=== PATIENT | female | born 1945 | race American Indian/Alaskan Native ===

== ENCOUNTER 2016-06-29 19:02 | Emergency (ER) | payer MEDICARE, OTHER, BC ==
[2016-06-29] MEDS ORDERED: Sodium Chloride 0.9% 1,000 ML IV ONE (19:13)
[2016-06-29] MEDS ORDERED: Sodium Chloride 0.9% 2.5 ML Syringe FLUSH PRN ×2 (19:13)
[2016-06-29] MEDS ORDERED: Sodium Chloride 0.9% 10 ML Syringe FLUSH PRN ×2 (19:13)
--- NOTE | 2016-06-29 19:30 | EDM.PDOC ---
ED HPI SEIZURE COMPLAINT - General Chief Complaint: Syncope Stated Complaint: PT HAS HIGH BLOOD PRESSURE Time Seen by Provider: 06/29/16 19:09 Source of Information: Reports: Patient, Family History Limitations: Reports: No limitations - History of Present Illness INITIAL COMMENTS - FREE TEXT/NARRATIVE: HISTORY AND PHYSICAL: History of present illness: [69-year-old female with a history of chronic renal insufficiency dementia type 2 diabetes prior CVA with unilateral persistent strength deficit of lower extremity unchanged for. Per patient, are OK with multiple stents placed now brought in by daughter for evaluation of episode of syncope while on her way to the bathroom to move her bowels. She had to use the bathroom and was holding it when she stood up to go to the bathroom with assistance from her daughter. Patient became lightheaded and then became unresponsive briefly. She did not fall and injured because of her daughter's presence. When patient awoke she was able to communicate verbally. This seizure activity, postictal state, or incontinence. No chest pain or shortness of air. Patient with no complaints except mild generalized weakness since her baseline chronically. Patient is unable walk without assistance and her walker and this is her baseline since her prior stroke. This and has a left lower facial droop also baseline since the prior stroke no new neurologic complaints and patient is at her baseline mental status per daughter. Daughter also mentions that the patient had a fall on the of this month where she hit her head but CT was ever done to evaluate this. Review of systems: As per history of present illness and below otherwise all systems reviewed and negative. Past medical history: As per history of present illness and as reviewed below otherwise noncontributory. Surgical history: As per history of present illness and as reviewed below otherwise noncontributory. Social history: No reported history of drug or alcohol abuse. Family history: As per history of present illness and as reviewed below otherwise noncontributory. Physical exam: Chronically weak appearing however alert in no acute distress with no complaints HEENT: Atraumatic, normocephalic, pupils reactive, negative for conjunctival pallor or scleral icterus, mucous membranes dry, throat clear, neck supple, nontender, trachea midline. Lungs: Clear to auscultation, breath sounds equal bilaterally, chest nontender. Heart: S1S2, regular, negative for clicks, rubs, or JVD. Abdomen: Soft, nondistended, nontender. Negative for masses or hepatosplenomegaly. Negative for costovertebral tenderness. Pelvis: Stable nontender. Genitourinary: Deferred. Rectal: Deferred. Extremities: Atraumatic, negative for cords or calf pain. Neurovascular unremarkable. Neuro: Awake, alert, oriented and mental status baseline per daughter. Cranial nerves II through XII unremarkable except left lower facial droop consistent with a central cranial nerve 7 palsy. Cerebellum unremarkable. Motor and sensory unremarkable throughout and consistent with generalized weakness baseline per patient and daughter. Exam otherwise nonfocal Diagnostics: [] Therapeutics: [] Impression: [] Plan: [] Definitive disposition and diagnosis as appropriate pending reevaluation and review of above. - Related Data Allergies/ADRs: Allergies Allergy/AdvReac Type Severity Reaction Status Date / Time Penicillins Allergy Swelling Verified 06/29/16 19:11 Home Meds: Home Meds Fenofibrate Nanocrystallized [Fenofibrate] 145 mg PO DAILY 05/26/14 [History] Levothyroxine 112 mcg PO DAILY 05/26/14 [History] Metoprolol Tartrate 1 tab PO DAILY 05/26/14 [History] Multivitamins/Iron/Folic Acid [Cerovite Advanced Formula] 1 tab PO DAILY [History] Vitamin E 400 units PO DAILY 05/26/14 [History] Warfarin [Coumadin] 2 mg PO DAILY 05/26/14 [History] Aspirin 162 mg PO DAILY #30 tab.chew 05/05/16 [Rx] Bumetanide [Bumex] 3 mg PO DAILY #90 tablet 05/05/16 [Rx] Insulin Aspart [NovoLOG] 15 unit SUBCUT TIDAC 30 Days 05/05/16 [Rx] Insulin Detemir [Levemir] 120 units SUBCUT ASDIRECTED 7 Days 05/05/16 [Rx] Past Medical History HEENT History: Reports: Cataract Cardiovascular History: Reports: Prior cardiac arrest, Stents Other Cardiovascular History: 06/08/16 cardiac arrest Respiratory History: Reports: None Genitourinary History: Reports: None, UTI, recurrent [employer]/DES[employer]ER History: Reports: , Other (see below) Other OB/BYN History: C section, hysterectomy Musculoskeletal History: Reports: None Neurological History: Reports: None Psychiatric History: Reports: None Endocrine/Metabolic History: Reports: Diabetes, type II, Hypothyroidism Hematologic History: Reports: Anticoagulation therapy Immunologic History: Reports: None Oncologic (Cancer) History: Reports: None Dermatologic History: Reports: None - Infectious Disease History Infectious Disease History: Reports: Chicken pox, Measles, Mumps - Past Surgical History Head Surgeries/Procedures: Reports: None HEENT Surgical History: Reports: Cataract surgery GI Surgical History: Reports: Cholecystectomy Female Surgical History: Reports: section, Hysterectomy Musculoskeletal Surgical History: Reports: Other (see below) Other Musculoskeletal Surgeries/Procedures:: left ankle Social & Family History - Family History Family Medical History: Noncontributory HEENT: Reports: Cataract Cardiac: Reports: Hypertension Respiratory: Reports: None GI: Reports: Irritable bowel syndrome : Reports: None OBGYN: Reports: None Musculoskeletal: Reports: Arthritis Neurological: Reports: None Psychiatric: Reports: None Endocrine/Metabolic: Reports: Diabetes, type I Hematologic: Reports: None Oncologic: Reports: Other (see below) Other Oncologic Family History: stomach cancer - Tobacco Use Smoking Status *Q: Never Smoker Second Hand Smoke Exposure: No - Caffeine Use Caffeine Use: Reports: Coffee, Tea - Alcohol Use Days Per Week of Alcohol Use: 0 - Recreational Drug Use Recreational Drug Use: No ED ROS GENERAL - Review of Systems Review Of Systems: See Below (Per history of present illness) - Physical Exam Exam: See Below (Per history of present illness) Course - Vital Signs Text/Narrative:: Signs and symptoms consistent with vasovagal episode in an elderly female with chronic weakness and ambulatory dysfunction requiring assistance and walker at all times. She currently at her baseline mental status as well as neurologic status with generalized weakness and no change in chronic deficit post CVA full workup pending to rule out contributory etiology. Patient with dry mucous membranes area fluid bolus initiated. EKG unremarkable. Patient with no symptomatic prodrome and nothing to suggest ACS or acute CVA. Vital signs stable. Daughter states that patient fell on the of this month she hasn't quite felt like herself since hitting her head the time of that fall. Will CT head to rule out intracranial abnormality EKG interpreted by me normal sinus rhythm at 69 left anterior hemiblock no standing nonspecific T-wave findings. Chest x-ray interpreted by me chronic changes no acute disease no change prior study Full workup unremarkable except for hemoglobin of 10 which is essentially unchanged for hemoglobin of 10.4 on May 28 as well as BUN/creatinine of 46 and 2.1 essentially unchanged from values of 52 and 2.1 January 25 also. Remainder workup benign. Patient continues to feel well on reevaluation her hydration. No further workup or treatment indicated. Outpatient followup appropriate and patient and family agree with this. There were to return immediately for new severe or worsening symptoms. Strict return precautions given. Last Recorded V/S: Last Vital Signs Temp 36.6 C 06/29/16 19:06 Pulse 69 06/29/16 19:06 Resp 16 06/29/16 19:06 BP 145/70 H 06/29/16 19:06 Pulse Ox 100 06/29/16 19:06 - Orders/Labs/Meds Orders: Active Orders 24 hr Category Date Time Status EKG Documentation Completion [RC] STAT Care 06/29/16 19:13 Active Peripheral IV Care [RC] . DIRECTED Care 06/29/16 19:13 Active Chest 1V Frontal [CR] Stat Exams 06/29/16 19:13 Taken Head wo Cont [CT] Stat Exams 06/29/16 19:55 Taken UA W/MICROSCOPIC [URIN] Stat Lab 06/29/16 19:13 Ordered Sodium Chloride 0.9% [Saline Flush] Med 06/29/16 19:13 Active 10 ml FLUSH ASDIRECTED PRN Sodium Chloride 0.9% [Saline Flush] Med 06/29/16 19:13 Active 10 ml FLUSH ASDIRECTED PRN Sodium Chloride 0.9% [Saline Flush] Med 06/29/16 19:13 Active 2.5 ml FLUSH ASDIRECTED PRN Sodium Chloride 0.9% [Saline Flush] Med 06/29/16 19:13 Active 2.5 ml FLUSH ASDIRECTED PRN Peripheral IV Insertion Adult [OM.PC] Stat Oth 06/29/16 19:13 Ordered Medication Orders Sodium Chloride (Saline Flush) 10 ml FLUSH ASDIRECTED PRN PRN Reason: Keep Vein Open Sodium Chloride (Saline Flush) 2.5 ml FLUSH ASDIRECTED PRN PRN Reason: Keep Vein Open Sodium Chloride (Saline Flush) 10 ml FLUSH ASDIRECTED PRN PRN Reason: Keep Vein Open Sodium Chloride (Saline Flush) 2.5 ml FLUSH ASDIRECTED PRN PRN Reason: Keep Vein Open Labs: Laboratory Tests 06/29/16 06/29/16 06/29/16 Range/Units 19:28 19:28 19:28 WBC 5.49 (4.0-11.0) K/uL RBC 3.50 L (4.30-5.90) M/uL Hgb 10.0 L (12.0-16.0) g/dL Hct 30.5 L (36.0-46.0) % MCV 87.1 (80.0-98.0) fL MCH 28.6 (27.0-32.0) pg MCHC 32.8 (31.0-37.0) g/dL RDW Std Deviation 42.5 (28.0-62.0) fl RDW Coeff of Irvin 14 (11.0-15.0) % Plt Count 286 (150-400) K/uL MPV 8.90 (7.40-12.00) fL Neut % (Auto) 64.8 (48.0-80.0) % Lymph % (Auto) 21.3 (16.0-40.0) % Vigo % (Auto) 12.2 (0.0-15.0) % Eos % (Auto) 1.5 (0.0-7.0) % Baso % (Auto) 0.2 (0.0-1.5) % Neut # 3.6 (1.4-5.7) K/uL Lymph # 1.2 (0.6-2.4) K/uL Vigo # 0.7 (0.0-0.8) K/uL Eos # 0.1 (0.0-0.7) K/uL Baso # 0.0 (0.0-0.1) K/uL Nucleated RBC % 0.0 /100WBC Nucleated RBCs # 0 K/uL Sodium 136 (136-146) mmol/L Potassium 3.8 (3.5-5.1) mmol/L Chloride 98 (98-110) mmol/L Carbon Dioxide 24 (21-31) mmol/L BUN 46 H (6.0-23.0) mg/dL Creatinine 2.1 H (0.6-1.5) mg/dL Est Cr Clr Drug Dosing 20.03 mL/min Estimated GFR (MDRD) 23.2 ml/min Glucose 153 H (60-110) mg/dL Calcium 9.2 (8.8-10.8) mg/dL Total Bilirubin 0.4 (0.1-1.5) mg/dL AST 21 (5-40) IU/L ALT 25 (8-54) IU/L Alkaline Phosphatase 145 (40-150) Troponin I < 0.10 (0.0-0.29) NG/ML Total Protein 8.3 H (6.0-8.0) g/dL Albumin 3.5 (3.4-4.8) g/dL Globulin 4.8 H (2.0-3.5) g/dL Albumin/Globulin Ratio 0.7 L (1.3-2.8) TSH 3rd Generation 2.10 (0.47-5.0) uIU/mL Meds: Medications Generic Name Dose Route Start Last Admin Trade Name Freq PRN Reason Stop Dose Admin Sodium Chloride 10 ml 06/29/16 19:13 Saline Flush FLUSH ASDIRECTED PRN Keep Vein Open Sodium Chloride 2.5 ml 06/29/16 19:13 Saline Flush FLUSH ASDIRECTED PRN Keep Vein Open Sodium Chloride 10 ml 06/29/16 19:13 Saline Flush FLUSH ASDIRECTED PRN Keep Vein Open Sodium Chloride 2.5 ml 06/29/16 19:13 Saline Flush FLUSH ASDIRECTED PRN Keep Vein Open Discontinued Medications Generic Name Dose Route Start Last Admin Trade Name Freq PRN Reason Stop Dose Admin Sodium Chloride 1,000 mls @ 999 mls/hr 06/29/16 19:13 06/29/16 19:50 Normal Saline IV 06/29/16 20:13 999 mls/hr .Bolus ONE Administration Departure - Departure Time of Disposition: 21:39 Disposition: Home, Self-Care 01 Condition: good Clinical Impression: Vasovagal syncope, Generalized weakness, Chronic renal insufficiency, Chronic anemia Instructions: Syncope, [id number] Referrals: PCP,None [Primary Care Provider] - Forms: ED Department Discharge Additional Instructions: Your history and findings today are consistent with an episode of vasovagal syncope. It appears that you also had a mild clinical dehydration that contributed to your episode of fainting. Be sure to stay well-hydrated. There is no significant change today in your chronic anemia were your chronic renal insufficiency. Continue with your medication regimen as prescribed and follow up with your DrDanny tomorrow. Return immediately for new severe or worsening symptoms. - My Orders Last 24 Hours: My Active Orders 06/29/16 19:13 EKG Documentation Completion [RC] STAT Peripheral IV Care [RC] . DIRECTED Chest 1V Frontal [CR] Stat UA W/MICROSCOPIC [URIN] Stat Sodium Chloride 0.9% [Saline Flush] 10 ml FLUSH ASDIRECTED PRN Sodium Chloride 0.9% [Saline Flush] 10 ml FLUSH ASDIRECTED PRN Sodium Chloride 0.9% [Saline Flush] 2.5 ml FLUSH ASDIRECTED PRN Sodium Chloride 0.9% [Saline Flush] 2.5 ml FLUSH ASDIRECTED PRN Peripheral IV Insertion Adult [OM.PC] Stat 06/29/16 19:55 Head wo Cont [CT] Stat - Assessment/Plan Last 24 Hours: My Active Orders 06/29/16 19:13 EKG Documentation Completion [RC] STAT Peripheral IV Care [RC] . DIRECTED Chest 1V Frontal [CR] Stat UA W/MICROSCOPIC [URIN] Stat Sodium Chloride 0.9% [Saline Flush] 10 ml FLUSH ASDIRECTED PRN Sodium Chloride 0.9% [Saline Flush] 10 ml FLUSH ASDIRECTED PRN Sodium Chloride 0.9% [Saline Flush] 2.5 ml FLUSH ASDIRECTED PRN Sodium Chloride 0.9% [Saline Flush] 2.5 ml FLUSH ASDIRECTED PRN Peripheral IV Insertion Adult [OM.PC] Stat 06/29/16 19:55 Head wo Cont [CT] Stat
[2016-06-29 22:16] VITALS: BP 140/63
--- NOTE | 2016-06-30 15:52 | CR ---
EXAM DATE: 06/29/16 PATIENT'S AGE: 71 Patient: YADIRA TORRES Facility: [place], [place] Site . Site : 1945 Study: XRay Chest [id number]/20/2017 8:45:40 PM Ordering Physician: Ward Wood Final Report: INDICATION: 3 syncopal episodes, hypertension. TECHNIQUE: Chest 1 view. COMPARISON: 05/28/2016 FINDINGS: Cardiovascular and mediastinum: Heart size and vasculature are normal in caliber and appearance. Mediastinum is within normal limits. Lungs and pleural space: Lungs are clear. No sign of infiltrate or mass. No sign of pleural effusion. No pneumothorax. Bones and soft tissues: Scoliosis. IMPRESSION: Unremarkable chest. Stable appearance of the chest compared to 05/28/2016. Dictated by Misha Joe MD @ 06/29/2016 8:54:09 PM Dictated by: Misha Joe MD @ 06/29/2016 20:54:16 (Electronic Signature) Report Signed by Proxy and Original Signed Document filed in the Medical Record. [facility]
--- NOTE | 2016-06-30 15:53 | CT ---
EXAM DATE: 06/29/16 PATIENT'S AGE: 71 Patient: YADIRA TORRES Facility: [place], [place] Site . Site : 1945 Study: CT Head [id number]/20/2017 8:59:36 PM Ordering Physician: Ward Wood Final Report: INDICATION: Syncope x3. Sinus pressure. Confusion, nausea, dizziness TECHNIQUE: CT head without contrast. COMPARISON: 02/03/2013 FINDINGS: CSF spaces: Within normal limits for age. Brain parenchyma: The bowles-white differentiation is normal. No sign of mass, hemorrhage, or midline shift. Skull base and calvarium: The visualized paranasal sinuses and mastoid air cells demonstrate no acute or significant findings. The visualized orbits are grossly unremarkable. No skull fractures. IMPRESSION: No intracranial abnormalities. Normal aeration of the paranasal sinuses and mastoid air cells. Dictated by Misha Joe MD @ 06/29/2016 9:11:04 PM Dictated by: Misha Joe MD @ 06/29/2016 21:11:10 (Electronic Signature) Report Signed by Proxy and Original Signed Document filed in the Medical Record. [facility]
== END 2016-06-29 22:16 | disposition home or self-care (01) ==
LOC: MW.ED 19:02
DX: E11.22 Type 2 diabetes mellitus with diabetic chronic kidney disease (principal); N18.9 Chronic kidney disease, unspecified; D63.1 Anemia in chronic kidney disease; E03.9 Hypothyroidism, unspecified; R53.1 Weakness; Z88.0 Allergy status to penicillin; Z79.899 Other long term (current) drug therapy; Z79.01 Long term (current) use of anticoagulants; Z79.82 Long term (current) use of aspirin; Z79.4 Long term (current) use of insulin; Z90.710 Acquired absence of both cervix and uterus; Z98.890 Other specified postprocedural states
CPT/HCPCS: 36415; 70450; 71010; 80053; 81001; 84443; 84484; 85025; 93005; 96360; 96361; 99285; J7040

== ENCOUNTER 2016-07-02 19:45 | Emergency (ER) | payer MEDICARE, BC ==
[2016-07-02] MEDS ORDERED: Sodium Chloride 0.9% 1,000 ML IV ONE (20:19)
[2016-07-02] MEDS ORDERED: Sodium Chloride 0.9% 10 ML Syringe FLUSH PRN ×2 (20:19)
[2016-07-02] MEDS ORDERED: Sodium Chloride 0.9% 2.5 ML Syringe FLUSH PRN ×2 (20:19)
[2016-07-02] MEDS ORDERED: Sodium Chloride 0.9% 500 ML IV ONE (20:20)
--- NOTE | 2016-07-02 23:09 | EDM.PDOC ---
ED HPI SEIZURE COMPLAINT - General Chief Complaint: Syncope Stated Complaint: syncopal episode Time Seen by Provider: 07/02/16 20:17 Source of Information: Reports: Patient, Family History Limitations: Reports: No limitations - History of Present Illness INITIAL COMMENTS - FREE TEXT/NARRATIVE: HISTORY AND PHYSICAL: History of present illness: [71-year-old female with a history of vasovagal syncope and orthostasis, seen by me days ago for an evaluation after an episode of syncope while on her way to the bathroom to urinate and move her bowels. Patient now presents to the emergency department again with an identical story of syncope. Patient stood up with her walker and attempted to walk to the bathroom to urinate and move her bowels and she was lightheaded and slumped to the ground she denies injury it no chest pain or shortness of breath. No focal weakness or complaint. She had no prodromal symptoms of chest pain shortness of air fevers chills sweats or shaking chills. She has normal bowel bladder habits and felt well up until the moment of this event and feels baseline now Review of systems: As per history of present illness and below otherwise all systems reviewed and negative. Past medical history: As per history of present illness and as reviewed below otherwise noncontributory. Surgical history: As per history of present illness and as reviewed below otherwise noncontributory. Social history: No reported history of drug or alcohol abuse. Family history: As per history of present illness and as reviewed below otherwise noncontributory. Physical exam: Elderly female no acute distress alert oriented and communicative. Nonfocal neurologically. HEENT: Atraumatic, normocephalic, pupils reactive, negative for conjunctival pallor or scleral icterus, mucous membranes moist, throat clear, neck supple, nontender, trachea midline. Painless range of motion of C-spine Lungs: Clear to auscultation, breath sounds equal bilaterally, chest nontender. Heart: S1S2, regular, negative for clicks, rubs, or JVD. Abdomen: Soft, nondistended, nontender. Negative for masses or hepatosplenomegaly. Negative for costovertebral tenderness. Pelvis: Stable nontender. Genitourinary: Deferred. Rectal: Deferred. Extremities: Atraumatic, negative for cords or calf pain. Neurovascular unremarkable. Neuro: Awake, alert, oriented. Cranial nerves II through XII unremarkable. Cerebellum unremarkable. Motor and sensory unremarkable throughout. Exam nonfocal. Diagnostics: [] Therapeutics: [] Impression: [] Plan: [] Definitive disposition and diagnosis as appropriate pending reevaluation and review of above. - Related Data Allergies/ADRs: Allergies Allergy/AdvReac Type Severity Reaction Status Date / Time Penicillins Allergy Swelling Verified 06/29/16 19:11 Home Meds: Home Meds Fenofibrate Nanocrystallized [Fenofibrate] 145 mg PO DAILY 05/26/14 [History] Levothyroxine 112 mcg PO DAILY 05/26/14 [History] Metoprolol Tartrate 1 tab PO DAILY 05/26/14 [History] Multivitamins/Iron/Folic Acid [Cerovite Advanced Formula] 1 tab PO DAILY [History] Vitamin E 400 units PO DAILY 05/26/14 [History] Warfarin [Coumadin] 2 mg PO DAILY 05/26/14 [History] Aspirin 162 mg PO DAILY #30 tab.chew 05/05/16 [Rx] Bumetanide [Bumex] 3 mg PO DAILY #90 tablet 05/05/16 [Rx] Insulin Aspart [NovoLOG] 15 unit SUBCUT TIDAC 30 Days 05/05/16 [Rx] Insulin Detemir [Levemir] 120 units SUBCUT ASDIRECTED 7 Days 05/05/16 [Rx] Past Medical History HEENT History: Reports: Cataract Cardiovascular History: Reports: Hypertension Other Cardiovascular History: 06/08/16 cardiac arrest Respiratory History: Reports: None Genitourinary History: Reports: None, UTI, recurrent BOARDMARKER History: Reports: , Other (see below) Other OB/BYN History: C section, hysterectomy Musculoskeletal History: Reports: None Neurological History: Reports: None Psychiatric History: Reports: None Endocrine/Metabolic History: Reports: Diabetes, type II, Hypothyroidism Hematologic History: Reports: Anticoagulation therapy Immunologic History: Reports: None Oncologic (Cancer) History: Reports: None Dermatologic History: Reports: None - Infectious Disease History Infectious Disease History: Reports: Chicken pox, Measles, Mumps - Past Surgical History Head Surgeries/Procedures: Reports: None HEENT Surgical History: Reports: Cataract surgery Other Cardiovascular Surgeries/Procedures: Dr Thorpe put in 2 stents 2 weeks ago. had stents in leg june 25 GI Surgical History: Reports: Cholecystectomy Female Surgical History: Reports: section, Hysterectomy Musculoskeletal Surgical History: Reports: Other (see below) Other Musculoskeletal Surgeries/Procedures:: left ankle Social & Family History - Family History Family Medical History: Noncontributory HEENT: Reports: Cataract Cardiac: Reports: Hypertension Respiratory: Reports: None GI: Reports: Irritable bowel syndrome : Reports: None OBGYN: Reports: None Musculoskeletal: Reports: Arthritis Neurological: Reports: None Psychiatric: Reports: None Endocrine/Metabolic: Reports: Diabetes, type I Hematologic: Reports: None Oncologic: Reports: Other (see below) Other Oncologic Family History: stomach cancer - Tobacco Use Smoking Status *Q: Never Smoker Second Hand Smoke Exposure: Yes - Caffeine Use Caffeine Use: Reports: Coffee - Alcohol Use Days Per Week of Alcohol Use: 0 - Recreational Drug Use Recreational Drug Use: No ED ROS GENERAL - Review of Systems Review Of Systems: See Below (Per history of present illness) - Physical Exam Exam: See Below (Per history of present illness) Course - Vital Signs Text/Narrative:: Signs and symptoms consistent with another episode of vasovagal syncope complicated by clearly identifiable orthostasis by history as well as mild clinical dehydration. Workup unremarkable. Patient's anemia and chronic renal insufficiency essentially unchanged from prior values. Patient feels baseline after small fluid bolus. Results discussed with patient and family including critical importance of extreme care while in dealing with her walker including standing and waiting for her blood pressure to equilibrate as well as potentially only ambulating with assistance if that becomes necessary. No further workup or treatment indicated at this time. As discussed with patient's manager game Dr. Thorpe, who is aware of history and findings and agrees with outpatient followup and no further workup or treatment at this time. Patient and family agree with outpatient followup strict return precautions given Last Recorded V/S: Last Vital Signs Temp 35.8 C 07/02/16 20:00 Pulse 82 07/02/16 23:52 Resp 17 07/02/16 23:52 BP 113/50 L 07/02/16 23:52 Pulse Ox 96 07/02/16 23:52 - Orders/Labs/Meds Orders: Active Orders 24 hr Category Date Time Status EKG Documentation Completion [RC] STAT Care 07/02/16 20:19 Active Peripheral IV Care [RC] . DIRECTED Care 07/02/16 20:19 Active Chest 1V Frontal [CR] Stat Exams 07/02/16 20:19 Taken Peripheral IV Insertion Adult [OM.PC] Stat Oth 07/02/16 20:19 Ordered Labs: Laboratory Tests 07/02/16 07/02/16 07/02/16 Range/Units 20:43 20:43 20:43 WBC 7.01 (4.0-11.0) K/uL RBC 3.53 L (4.30-5.90) M/uL Hgb 10.3 L (12.0-16.0) g/dL Hct 30.2 L (36.0-46.0) % MCV 85.6 (80.0-98.0) fL MCH 29.2 (27.0-32.0) pg MCHC 34.1 (31.0-37.0) g/dL RDW Std Deviation 42.3 (28.0-62.0) fl RDW Coeff of Irvin 14 (11.0-15.0) % Plt Count 297 (150-400) K/uL MPV 9.20 (7.40-12.00) fL Neut % (Auto) 79.2 (48.0-80.0) % Lymph % (Auto) 10.0 L (16.0-40.0) % Jenkins % (Auto) 10.7 (0.0-15.0) % Eos % (Auto) 0.1 (0.0-7.0) % Baso % (Auto) 0.0 (0.0-1.5) % Neut # (Auto) 5.6 (1.4-5.7) K/uL Lymph # (Auto) 0.7 (0.6-2.4) K/uL Jenkins # (Auto) 0.8 (0.0-0.8) K/uL Eos # (Auto) 0.0 (0.0-0.7) K/uL Baso # (Auto) 0.0 (0.0-0.1) K/uL Nucleated RBC % 0.0 /100WBC Nucleated RBCs # 0 K/uL Sodium 134 L (136-146) mmol/L Potassium 4.1 (3.5-5.1) mmol/L Chloride 98 (98-110) mmol/L Carbon Dioxide 21 (21-31) mmol/L BUN 55 H (6.0-23.0) mg/dL Creatinine 2.1 H (0.6-1.5) mg/dL Est Cr Clr Drug Dosing 20.03 mL/min Estimated GFR (MDRD) 23.2 ml/min Glucose 194 H (60-110) mg/dL Calcium 8.7 L (8.8-10.8) mg/dL Total Bilirubin 0.4 (0.1-1.5) mg/dL AST 38 (5-40) IU/L ALT 28 (8-54) IU/L Alkaline Phosphatase 184 H (40-150) Troponin I < 0.10 (0.0-0.29) NG/ML Total Protein 8.6 H (6.0-8.0) g/dL Albumin 3.4 (3.4-4.8) g/dL Globulin 5.2 H (2.0-3.5) g/dL Albumin/Globulin Ratio 0.7 L (1.3-2.8) Urine Color Urine Appearance Urine pH (5.0-8.0) Ur Specific [place] (1.001-1.035) Urine Protein (NEGATIVE) mg/dL Urine Glucose (UA) (NEGATIVE) mg/dL Urine Ketones (NEGATIVE) mg/dL Urine Occult Blood (NEGATIVE) Urine Nitrite (NEGATIVE) Urine Bilirubin (NEGATIVE) Urine Urobilinogen (<2.0) EU/dL Ur Leukocyte Esterase (NEGATIVE) Urine RBC (0-2/HPF) Urine WBC (0-5/HPF) Ur Epithelial Cells (NONE-FEW) Urine Bacteria (NEGATIVE) 07/02/16 Range/Units 21:13 WBC (4.0-11.0) K/uL RBC (4.30-5.90) M/uL Hgb (12.0-16.0) g/dL Hct (36.0-46.0) % MCV (80.0-98.0) fL MCH (27.0-32.0) pg MCHC (31.0-37.0) g/dL RDW Std Deviation (28.0-62.0) fl RDW Coeff of Irvin (11.0-15.0) % Plt Count (150-400) K/uL MPV (7.40-12.00) fL Neut % (Auto) (48.0-80.0) % Lymph % (Auto) (16.0-40.0) % Jenkins % (Auto) (0.0-15.0) % Eos % (Auto) (0.0-7.0) % Baso % (Auto) (0.0-1.5) % Neut # (Auto) (1.4-5.7) K/uL Lymph # (Auto) (0.6-2.4) K/uL Jenkins # (Auto) (0.0-0.8) K/uL Eos # (Auto) (0.0-0.7) K/uL Baso # (Auto) (0.0-0.1) K/uL Nucleated RBC % /100WBC Nucleated RBCs # K/uL Sodium (136-146) mmol/L Potassium (3.5-5.1) mmol/L Chloride (98-110) mmol/L Carbon Dioxide (21-31) mmol/L BUN (6.0-23.0) mg/dL Creatinine (0.6-1.5) mg/dL Est Cr Clr Drug Dosing mL/min Estimated GFR (MDRD) ml/min Glucose (60-110) mg/dL Calcium (8.8-10.8) mg/dL Total Bilirubin (0.1-1.5) mg/dL AST (5-40) IU/L ALT (8-54) IU/L Alkaline Phosphatase (40-150) Troponin I (0.0-0.29) NG/ML Total Protein (6.0-8.0) g/dL Albumin (3.4-4.8) g/dL Globulin (2.0-3.5) g/dL Albumin/Globulin Ratio (1.3-2.8) Urine Color YELLOW Urine Appearance SLT CLOUDY Urine pH 5.5 (5.0-8.0) Ur Specific [place] 1.015 (1.001-1.035) Urine Protein 30 (NEGATIVE) mg/dL Urine Glucose (UA) 500 H (NEGATIVE) mg/dL Urine Ketones NEGATIVE (NEGATIVE) mg/dL Urine Occult Blood TRACE-LYSED (NEGATIVE) Urine Nitrite NEGATIVE (NEGATIVE) Urine Bilirubin NEGATIVE (NEGATIVE) Urine Urobilinogen 0.2 (<2.0) EU/dL Ur Leukocyte Esterase NEGATIVE (NEGATIVE) Urine RBC 0-2 (0-2/HPF) Urine WBC 4-6 (0-5/HPF) Ur Epithelial Cells FEW (NONE-FEW) Urine Bacteria 1+ H (NEGATIVE) Meds: Medications Discontinued Medications Generic Name Dose Route Start Last Admin Trade Name Greg PRN Reason Stop Dose Admin Sodium Chloride 1,000 mls @ 999 mls/hr 07/02/16 20:19 07/02/16 21:01 Normal Saline IV 07/02/16 21:19 Not Given .Bolus ONE Sodium Chloride 500 mls @ 500 mls/hr 07/02/16 20:20 07/02/16 20:42 Normal Saline IV 07/02/16 21:18 500 mls/hr .Bolus ONE Administration Sodium Chloride 10 ml 07/02/16 20:19 Saline Flush FLUSH ASDIRECTED PRN Keep Vein Open Sodium Chloride 2.5 ml 07/02/16 20:19 Saline Flush FLUSH ASDIRECTED PRN Keep Vein Open Sodium Chloride 10 ml 07/02/16 20:19 Saline Flush FLUSH ASDIRECTED PRN Keep Vein Open Sodium Chloride 2.5 ml 07/02/16 20:19 Saline Flush FLUSH ASDIRECTED PRN Keep Vein Open Departure - Departure Time of Disposition: 23:09 Disposition: Home, Self-Care 01 Condition: good Clinical Impression: Vasovagal syncope, Orthostasis Instructions: Syncope, [id number] Referrals: Carlene Hendrix MD [Primary Care Provider] - Forms: ED Department Discharge Additional Instructions: Today he had an episode of vasovagal syncope. It appears that he may have had some overdiuresis which means to much fluid has come off from your diuretic medication. Additionally he must be cautious when standing and ambulating because ulnarly people get orthostasis, which is a drop in blood pressure when they stand because the veins and arteries are unable to constrict as they did when you were young in order to maintain your blood pressure. This requires extra care when standing ambulate. Use a walker and be sure to pause after standing to light your blood pressure a just and if necessary get assistance for walking in order to be safe. you have mild anemia which is unchanged from your previous results as well as renal insufficiency which is also unchanged. Follow up with your doctor in the morning. Dr. Thorpe,your manager game, is aware of these results and agrees it's appropriate for you to followup as an outpatient. - My Orders Last 24 Hours: My Active Orders 07/02/16 20:19 EKG Documentation Completion [RC] STAT Peripheral IV Care [RC] . DIRECTED Chest 1V Frontal [CR] Stat Peripheral IV Insertion Adult [OM.PC] Stat - Assessment/Plan Last 24 Hours: My Active Orders 07/02/16 20:19 EKG Documentation Completion [RC] STAT Peripheral IV Care [RC] . DIRECTED Chest 1V Frontal [CR] Stat Peripheral IV Insertion Adult [OM.PC] Stat
[2016-07-02 23:56] VITALS: BP 113/50
--- NOTE | 2016-07-03 14:03 | CR ---
EXAM DATE: 07/02/16 PATIENT'S AGE: 71 Patient: YADIRA TORRES Facility: [place], [place] Site . Site : [id number] Study: XRay Chest [id number]/23/2017 9:16:33 PM Ordering Physician: Ward Wood Final Report: INDICATION: syncope TECHNIQUE: Chest 1 view COMPARISON: June 29, 2016. FINDINGS: Cardiovascular and mediastinum: Stable cardiac silhouette. Stable tortuosity of the ascending thoracic aorta. Stable atherosclerotic disease.. Mediastinum is within normal limits. Lungs and pleural space: No focal consolidation. No sign of pleural effusion. No pneumothorax. Bones and soft tissues: Stable leftward curvature of the imaged thoracolumbar spine. IMPRESSION: No acute cardiopulmonary disease. Dictated by Jovon Le MD @ 07/02/2016 9:22:39 PM Dictated by: Jovon Le MD @ 07/02/2016 21:24:45 (Electronic Signature) Report Signed by Proxy and Original Signed Document filed in the Medical Record. [facility]
== END 2016-07-02 23:57 | disposition home or self-care (01) ==
LOC: MW.ED 19:45
DX: I95.1 Orthostatic hypotension (principal); E11.9 Type 2 diabetes mellitus without complications; E03.9 Hypothyroidism, unspecified; I10 Essential (primary) hypertension; Z88.0 Allergy status to penicillin; Z79.82 Long term (current) use of aspirin; Z79.01 Long term (current) use of anticoagulants; Z79.899 Other long term (current) drug therapy; Z79.4 Long term (current) use of insulin; Z87.440 Personal history of urinary (tract) infections; Z90.710 Acquired absence of both cervix and uterus; Z98.49 Cataract extraction status, unspecified eye; Z90.49 Acquired absence of other specified parts of digestive tract
CPT/HCPCS: 36415; 71010; 80053; 81001; 84484; 85025; 93005; 96360; 99284; J7040

== ENCOUNTER → 2016-08-28 | Outpatient (CLI) | payer MEDICARE, BC ==
--- NOTE | 2016-08-31 10:02 | MR ---
EXAMINATION: MRI right foot HISTORY: Pain COMPARISON: No radiographs for comparison. TECHNIQUE: Multiplanar and multisequence images obtained of the right foot without contrast. FINDINGS: There is diffuse edema noted within the tarsal bones. There are likely extensive fractures and/or bony destruction of the cuboid and the cuneiforms. Overall the cortical margins are not well -characterized secondary to extensive synovial thickening and edema. Edema is noted within the talus , anterior calcaneus and within the proximal aspect of the metatarsals. There is edema throughout th e plantar musculature and soft tissues, extensive dorsal soft tissue edema is also noted. The [place] ligament is likely intact. The Achilles tendon is normal in configuration. There is a small tibio talar and subtalar joint effusion. No organized fluid collection. IMPRESSION: 1. Extensive edema and destruction most notable within the midfoot with extensive synovial thickenin g. This could represent Charcot's foot, or posttraumatic changes. Plain film correlation would be be neficial. Underlying osteomyelitis and septic arthritis within the mid and hindfoot is not excluded. 2. Extensive soft tissue thickening throughout the plantar soft tissues and along the dorsal aspect of the foot.
== END ==
LOC: MW.MRI 11:15
PROVIDERS: ATTEND Podiatrist Foot & Ankle Surgery
DX: M79.671 Pain in right foot (principal)
CPT/HCPCS: 73718-26-RT; 73718-RT

== ENCOUNTER 2017-01-30 22:34 | Observation (INO) | payer MEDICARE, BC ==
[2017-01-30] MEDS ORDERED: Sodium Chloride 0.9% 2.5 ML Syringe FLUSH PRN (22:46)
[2017-01-30] MEDS ORDERED: Sodium Chloride 0.9% 10 ML Syringe FLUSH PRN (22:46)
[2017-01-30] MEDS ORDERED: Furosemide 40 MG/4 ML VIAL IVPUSH ONE (22:55)
[2017-01-30] MEDS ORDERED: Nitroglycerin 2% Oint 1 GM UD Packet TOP ONE (22:55)
--- NOTE | 2017-01-30 22:55 | EDM.PDOC ---
ED HPI GENERAL MEDICAL PROBLEM - General Chief Complaint: Respiratory Problem Stated Complaint: FROM [facility] HOME Time Seen by Provider: 01/30/17 22:51 - History of Present Illness INITIAL COMMENTS - FREE TEXT/NARRATIVE: HISTORY AND PHYSICAL: History of present illness: Patient 71-year-old female with an extensive past medical history including coronary artery disease chronic atrial fibrillation chronic diabetic ulcers congestive heart failure presents with concern of shortness of breath has been worse over the last 24 hours she denies fever chills chest pain or other concern Review of systems: As per history of present illness and below otherwise all systems reviewed and negative. Past medical history: As per history of present illness and as reviewed below otherwise noncontributory. Surgical history: As per history of present illness and as reviewed below otherwise noncontributory. Social history: No reported history of drug or alcohol abuse. Family history: As per history of present illness and as reviewed below otherwise noncontributory. Physical exam: HEENT: Atraumatic, normocephalic, pupils reactive, negative for conjunctival pallor or scleral icterus, mucous membranes moist, throat clear, neck supple, nontender, trachea midline. Lungs: Coarse bilaterally with scant basilar crackles noted, breath sounds equal bilaterally, chest nontender. Heart: S1S2, negative for clicks, rubs, or JVD. Abdomen: Soft, nondistended, nontender. Negative for masses or hepatosplenomegaly. Negative for costovertebral tenderness. Pelvis: Stable nontender. Genitourinary: Deferred. Rectal: Deferred. Extremities: negative for cords or calf pain. Neurovascular unremarkable. Neuro: Awake, alert, oriented. Cranial nerves II through XII unremarkable. Cerebellum unremarkable. Motor and sensory unremarkable throughout. Exam nonfocal. Diagnostics: CBC CMP troponin PT/INR d-dimer chest x-ray EKG blood culture 2 UA urine culture lactic acid Therapeutics: IV O2 monitor Lasix 40 mg IV Impression: #1 acute dyspnea with hypoxemia #2 history of CHF #3 history coronary artery disease #4 history of atrial fibrillation #5 history of diabetes with diabetic ulcers Definitive disposition and diagnosis as appropriate pending reevaluation and review of above. - Related Data Allergies Allergy/AdvReac Type Severity Reaction Status Date / Time carvedilol Allergy UNKNOWN Verified 01/30/17 22:43 cephalexin Allergy UNKNOWN Verified 01/30/17 22:43 codeine Allergy UNKNOWN Verified 01/30/17 22:43 erythromycin base Allergy UNKNOWN Verified 01/30/17 22:43 levofloxacin Allergy UNKNOWN Verified 01/30/17 22:43 meperidine [From Demerol] Allergy UNKNOWN Verified 01/30/17 22:43 Penicillins Allergy Swelling Verified 01/30/17 22:42 [id number] Reductase Allergy UNKNOWN Verified 01/30/17 22:43 Inhibitor Home Meds: Home Meds Levothyroxine 112 mcg PO DAILY 05/26/14 [History] Acetaminophen [Arthritis Pain Relief] 650 mg PO Q4HR PRN 01/30/17 [History] Bisacodyl 10 mg RECTAL DAILY PRN 01/30/17 [History] Clopidogrel Bisulfate [Plavix] 75 mg PO DAILY 01/30/17 [History] Dextran 70/Hypromellose [Artificial Tears] 1 drop EYERT ASDIRECTED PRN 01/30/17 [History] Insulin Aspart [NovoLOG] 5 unit SUBCUT TIDAC 01/30/17 [History] Insulin Detemir [Levemir] 45 units SUBCUT BID 01/30/17 [History] Magnesium Hydroxide [Milk of Magnesia] 30 ml PO DAILY PRN 01/30/17 [History] Multivitamin [Multivitamins] 1 tab PO DAILY 01/30/17 [History] Nitroglycerin [Nitro-Dur 0.2 MG/Hr] 1 patch TRDERM DAILY 01/30/17 [History] Triamcinolone Acetonide [Triamcinolone Acetonide 0.1% Crm] 1 applic TOP BID [History] Aspirin 162 mg PO DAILY 01/31/17 [History] Past Medical History HEENT History: Reports: Cataract Cardiovascular History: Reports: Hypertension Other Cardiovascular History: 06/08/16 cardiac arrest Respiratory History: Reports: None Genitourinary History: Reports: None, UTI, 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: , Other (See Below) Other OB/BYN History: C section, hysterectomy Musculoskeletal History: Reports: None Neurological History: Reports: None Psychiatric History: Reports: None Endocrine/Metabolic History: Reports: Diabetes, Type II, Hypothyroidism Hematologic History: Reports: Anticoagulation Therapy Immunologic History: Reports: None Oncologic (Cancer) History: Reports: None Dermatologic History: Reports: None - Infectious Disease History Infectious Disease History: Reports: Chicken Pox, Measles, Mumps - Past Surgical History Head Surgeries/Procedures: Reports: None HEENT Surgical History: Reports: Cataract Surgery Other Cardiovascular Surgeries/Procedures: Dr Thorpe put in 2 stents 2 weeks ago. had stents in leg june 25 GI Surgical History: Reports: Cholecystectomy Female Surgical History: Reports: Section, Hysterectomy Musculoskeletal Surgical History: Reports: Other (See Below) Social & Family History - Family History Family Medical History: Noncontributory HEENT: Reports: Cataract Cardiac: Reports: Hypertension Respiratory: Reports: None GI: Reports: Irritable Bowel Syndrome : Reports: None OBGYN: Reports: None Musculoskeletal: Reports: Arthritis Neurological: Reports: None Psychiatric: Reports: None Endocrine/Metabolic: Reports: Diabetes, Type I Hematologic: Reports: None Oncologic: Reports: Other (See Below) Other Oncologic Family History: stomach cancer - Tobacco Use Smoking Status *Q: Former Smoker Used Tobacco, but Quit: No Tobacco Use Comment: STOPPED SMOKING MORE THAN 20 YRS AGO Second Hand Smoke Exposure: Yes - Caffeine Use Caffeine Use: Reports: Coffee - Alcohol Use Days Per Week of Alcohol Use: 0 - Recreational Drug Use Recreational Drug Use: No ED ROS GENERAL - Review of Systems Review Of Systems: ROS reveals no pertinent complaints other than HPI. ED EXAM, GENERAL - Physical Exam Exam: See Below (See dictation) Course - Vital Signs Last Recorded V/S: Last Vital Signs Temp 36.6 C 02/02/17 00:00 Pulse 81 02/02/17 00:00 Resp 20 02/02/17 00:00 BP 135/63 02/02/17 00:00 Pulse Ox 95 02/02/17 00:00 - Orders/Labs/Meds Orders: Medication Orders Acetaminophen (Tylenol) 650 mg PO Q4HR PRN PRN Reason: PAIN AND FEVER Artificial Tears (Refresh Plus 0.5%) 1 each EYERT ASDIRECTED PRN PRN Reason: Dry Eyes Aspirin (Aspirin) 162 mg PO DAILY [facility] Last Admin: 02/01/17 08:29 Dose: 162 mg Bisacodyl (Dulcolax) 10 mg RECTAL ASDIRECTED PRN PRN Reason: Constipation Clopidogrel Bisulfate (Plavix) 75 mg PO DAILY [facility] Last Admin: 02/01/17 08:30 Dose: 75 mg Admin: 01/31/17 10:49 Dose: 75 mg Furosemide (Lasix) 40 mg IVPUSH BID [facility] Last Admin: 02/01/17 20:46 Dose: 40 mg Admin: 02/01/17 09:28 Dose: 40 mg Admin: 01/31/17 20:34 Dose: 40 mg Admin: 01/31/17 10:49 Dose: 40 mg Heparin Sodium (Porcine) (Heparin Sodium) 5,000 units SUBCUT Q12HR [facility] Last Admin: 02/01/17 20:46 Dose: 5,000 units Admin: 02/01/17 09:28 Dose: 5,000 units Admin: 01/31/17 20:41 Dose: 5,000 units Sodium Chloride (Normal Saline) 250 mls @ 999 mls/hr IV STAT [facility] Last Admin: 01/31/17 01:46 Dose: 999 mls/hr Insulin Aspart (Novolog) 0 unit SUBCUT TIDAC [facility] PRN Reason: Protocol Last Admin: 02/01/17 17:45 Dose: 2 units Admin: 02/01/17 12:52 Dose: 2 units Admin: 02/01/17 08:27 Dose: 2 units Admin: 01/31/17 16:45 Dose: Not Given Admin: 01/31/17 12:16 Dose: Not Given Admin: 01/31/17 07:35 Dose: Not Given Insulin Detemir (Levemir) 30 unit SUBCUT BID@0800,2100 [facility] Last Admin: 02/01/17 21:11 Dose: 30 units Levothyroxine Sodium (Levothyroxine) 112 mcg PO ACBREAKFAST [facility] Last Admin: 02/01/17 06:52 Dose: 112 mcg Magnesium Hydroxide (Milk Of Magnesia) 30 ml PO ASDIRECTED PRN PRN Reason: Constipation Nitroglycerin (Nitro-Dur 0.2 Mg/Hr) 0.2 mg TRDERM Q24H [facility] Last Admin: 02/01/17 09:30 Dose: 0.2 mg Sodium Chloride (Saline Flush) 10 ml FLUSH ASDIRECTED PRN PRN Reason: Keep Vein Open Sodium Chloride (Saline Flush) 2.5 ml FLUSH ASDIRECTED PRN PRN Reason: Keep Vein Open Labs: Laboratory Tests 01/30/17 01/30/17 01/30/17 Range/Units 22:52 22:52 22:52 WBC 8.31 (4.0-11.0) K/uL RBC 3.78 L (4.30-5.90) M/uL Hgb 11.4 L (12.0-16.0) g/dL Hct 32.7 L (36.0-46.0) % MCV 86.5 (80.0-98.0) fL MCH 30.2 (27.0-32.0) pg MCHC 34.9 (31.0-37.0) g/dL RDW Std Deviation 41.9 (28.0-62.0) fl RDW Coeff of Irvin 13 (11.0-15.0) % Plt Count 242 (150-400) K/uL MPV 9.00 (7.40-12.00) fL Neut % (Auto) 68.2 (48.0-80.0) % Lymph % (Auto) 20.6 (16.0-40.0) % [place] % (Auto) 7.6 (0.0-15.0) % Eos % (Auto) 3.5 (0.0-7.0) % Baso % (Auto) 0.1 (0.0-1.5) % Neut # (Auto) 5.7 (1.4-5.7) K/uL Lymph # (Auto) 1.7 (0.6-2.4) K/uL [place] # (Auto) 0.6 (0.0-0.8) K/uL Eos # (Auto) 0.3 (0.0-0.7) K/uL Baso # (Auto) 0.0 (0.0-0.1) K/uL Nucleated RBC % 0.0 /100WBC Nucleated RBCs # 0 K/uL INR 0.94 (0.86-1.11) D-Dimer, Quantitative 1.91 H (0.0-0.52) mg/LFEU Lactate (0.20-2.00) mmol/L Sodium 133 L (136-146) mmol/L Potassium 4.6 (3.5-5.1) mmol/L Chloride 107 (98-110) mmol/L Carbon Dioxide 16 L (21-31) mmol/L BUN 49 H (6.0-23.0) mg/dL Creatinine 1.4 (0.6-1.5) mg/dL Est Cr Clr Drug Dosing TNP Estimated GFR (MDRD) 37.0 ml/min Glucose 351 H (60-110) mg/dL Calcium 8.9 (8.8-10.8) mg/dL Total Bilirubin 0.4 (0.1-1.5) mg/dL AST 30 (5-40) IU/L ALT 42 (8-54) IU/L Alkaline Phosphatase 155 H (40-150) Troponin I 0.27 (0.0-0.29) NG/ML B-Natriuretic Peptide (<100) PG/ML Total Protein 7.2 (6.0-8.0) g/dL Albumin 3.5 (3.4-4.8) g/dL Globulin 3.7 H (2.0-3.5) g/dL Albumin/Globulin Ratio 1.0 L (1.3-2.8) Amylase 49 (10-90) U/L Lipase 36 (7-80) U/L Urine Color Urine Appearance Urine pH (5.0-8.0) Ur Specific [place] (1.001-1.035) Urine Protein (NEGATIVE) mg/dL Urine Glucose (UA) (NEGATIVE) mg/dL Urine Ketones (NEGATIVE) mg/dL Urine Occult Blood (NEGATIVE) Urine Nitrite (NEGATIVE) Urine Bilirubin (NEGATIVE) Urine Urobilinogen (<2.0) EU/dL Ur Leukocyte Esterase (NEGATIVE) Urine RBC (0-2/HPF) Urine WBC (0-5/HPF) Ur Epithelial Cells (NONE-FEW) Urine Bacteria (NEGATIVE) 01/30/17 01/30/17 01/30/17 Range/Units 22:52 22:52 23:55 WBC (4.0-11.0) K/uL RBC (4.30-5.90) M/uL Hgb (12.0-16.0) g/dL Hct (36.0-46.0) % MCV (80.0-98.0) fL MCH (27.0-32.0) pg MCHC (31.0-37.0) g/dL RDW Std Deviation (28.0-62.0) fl RDW Coeff of Irvin (11.0-15.0) % Plt Count (150-400) K/uL MPV (7.40-12.00) fL Neut % (Auto) (48.0-80.0) % Lymph % (Auto) (16.0-40.0) % [place] % (Auto) (0.0-15.0) % Eos % (Auto) (0.0-7.0) % Baso % (Auto) (0.0-1.5) % Neut # (Auto) (1.4-5.7) K/uL Lymph # (Auto) (0.6-2.4) K/uL [place] # (Auto) (0.0-0.8) K/uL Eos # (Auto) (0.0-0.7) K/uL Baso # (Auto) (0.0-0.1) K/uL Nucleated RBC % /100WBC Nucleated RBCs # K/uL INR (0.86-1.11) D-Dimer, Quantitative (0.0-0.52) mg/LFEU Lactate 1.8 (0.20-2.00) mmol/L Sodium (136-146) mmol/L Potassium (3.5-5.1) mmol/L Chloride (98-110) mmol/L Carbon Dioxide (21-31) mmol/L BUN (6.0-23.0) mg/dL Creatinine (0.6-1.5) mg/dL Est Cr Clr Drug Dosing Estimated GFR (MDRD) ml/min Glucose (60-110) mg/dL Calcium (8.8-10.8) mg/dL Total Bilirubin (0.1-1.5) mg/dL AST (5-40) IU/L ALT (8-54) IU/L Alkaline Phosphatase (40-150) Troponin I (0.0-0.29) NG/ML B-Natriuretic Peptide 641 H (<100) PG/ML Total Protein (6.0-8.0) g/dL Albumin (3.4-4.8) g/dL Globulin (2.0-3.5) g/dL Albumin/Globulin Ratio (1.3-2.8) Amylase (10-90) U/L Lipase (7-80) U/L Urine Color YELLOW Urine Appearance CLEAR Urine pH 5.5 (5.0-8.0) Ur Specific [place] 1.015 (1.001-1.035) Urine Protein 100 (NEGATIVE) mg/dL Urine Glucose (UA) 250 H (NEGATIVE) mg/dL Urine Ketones NEGATIVE (NEGATIVE) mg/dL Urine Occult Blood MODERATE (NEGATIVE) Urine Nitrite NEGATIVE (NEGATIVE) Urine Bilirubin NEGATIVE (NEGATIVE) Urine Urobilinogen 0.2 (<2.0) EU/dL Ur Leukocyte Esterase NEGATIVE (NEGATIVE) Urine RBC 20-25 (0-2/HPF) Urine WBC 0-4 (0-5/HPF) Ur Epithelial Cells RARE (NONE-FEW) Urine Bacteria FEW (NEGATIVE) Meds: Medications Generic Name Dose Route Start Last Admin Trade Name Freq PRN Reason Stop Dose Admin Acetaminophen 650 mg 01/31/17 09:59 Tylenol PO Q4HR PRN PAIN AND FEVER Artificial Tears 1 each 01/31/17 09:59 Refresh Plus 0.5% EYERT ASDIRECTED PRN Dry Eyes Aspirin 162 mg 02/01/17 09:00 02/01/17 08:29 Aspirin PO 162 mg DAILY REMIGIO Administration Bisacodyl 10 mg 01/31/17 09:59 Dulcolax RECTAL ASDIRECTED PRN Constipation Clopidogrel Bisulfate 75 mg 01/31/17 10:00 02/01/17 08:30 Plavix PO 75 mg DAILY [facility] Administration Furosemide 40 mg 01/31/17 10:15 02/01/17 20:46 Lasix IVPUSH 40 mg BID [facility] Administration Heparin Sodium (Porcine) 5,000 units 01/31/17 21:00 02/01/17 20:46 Heparin Sodium SUBCUT 5,000 units Q12HR [facility] Administration Sodium Chloride 250 mls @ 999 mls/hr 01/31/17 01:45 01/31/17 01:46 Normal Saline IV 999 mls/hr STAT [facility] Administration Insulin Aspart 0 unit 01/31/17 07:30 02/01/17 17:45 Novolog SUBCUT 2 units TIDAC [facility]IGIO Administration Protocol Insulin Detemir 30 unit 02/01/17 21:00 02/01/17 21:11 Levemir SUBCUT 30 units BID@0800,2100 [facility] Administration Levothyroxine Sodium 112 mcg 02/01/17 07:30 02/01/17 06:52 Levothyroxine PO 112 mcg ACBREAKFAST [facility] Administration Magnesium Hydroxide 30 ml 01/31/17 09:59 Milk Of Magnesia PO ASDIRECTED PRN Constipation Nitroglycerin 0.2 mg 02/01/17 09:00 02/01/17 09:30 Nitro-Dur 0.2 Mg/Hr TRDERM 0.2 mg Q24H [facility] Administration Sodium Chloride 10 ml 01/30/17 22:46 Saline Flush FLUSH ASDIRECTED PRN Keep Vein Open Sodium Chloride 2.5 ml 01/30/17 22:46 Saline Flush FLUSH ASDIRECTED PRN Keep Vein Open Discontinued Medications Generic Name Dose Route Start Last Admin Trade Name Freq PRN Reason Stop Dose Admin Dextrose/Water 50 ml 02/01/17 04:29 02/01/17 04:41 Dextrose 50% In Water IVPUSH 02/01/17 04:30 50 ml ONETIME ONE Administration Furosemide 40 mg 01/30/17 22:55 01/30/17 23:03 Lasix IVPUSH 01/30/17 22:56 40 mg NOW ONE Administration Doxycycline Hyclate 100 mg/ 100 mls @ 100 mls/hr 01/31/17 01:45 01/31/17 07: 49 Sodium Chloride IV Not Given Q12H [facility]IGIO Doxycycline Hyclate 100 mg/ 100 mls @ 100 mls/hr 01/31/17 01:56 02/01/17 01: 35 Sodium Chloride IV 100 mls/hr Q12H [facility] Administration Insulin Aspart 5 unit 01/31/17 11:30 02/01/17 12:55 Novolog SUBCUT Not Given TIDAC [facility] Insulin Detemir 45 unit 01/31/17 03:45 Levemir SUBCUT ASDIRECTED [facility] Insulin Detemir 45 unit 01/31/17 08:00 02/01/17 08:41 Levemir SUBCUT Not Given BID@0800,2100 [facility] Iopamidol 75 ml 01/31/17 03:05 01/31/17 07:49 Isovue-300 (61%) IVPUSH 01/31/17 03:06 Not Given ONETIME ONE Iopamidol 75 ml 01/31/17 03:07 01/31/17 03:07 Isovue-300 (61%) IVPUSH 01/31/17 03:08 75 ml ONETIME STA Administration Nitroglycerin 1 gm 01/30/17 22:55 01/30/17 23:07 Nitro-Bid 2% TOP 01/30/17 22:56 1 gm ONETIME ONE Administration Departure - Departure Time of Disposition: 01:00 Disposition: Admitted As Inpatient 65 Condition: Good Clinical Impression: Dyspnea, CHF (congestive heart failure) - Discharge Information
[2017-01-30 23:26] LABS: CHLORIDE,CL 107 mmol/L (98-110); SODIUM,NA 133 mmol/L (136-146)
[2017-01-31] MEDS ORDERED: Sodium Chloride 0.9% 250 ML IV SCH (01:45)
[2017-01-31] MEDS ORDERED: Doxycycline 100 MG in Sodium Chloride 0.9% 100 ML IV SCH (01:45)
[2017-01-31] MEDS: Doxycycline 100 MG in Sodium Chloride 0.9% 100 ML IV SCH ×2 (02:41→13:22)
[2017-01-31] MEDS ORDERED: Iopamidol 612 MG/ML 75 ML Bottle IVPUSH ONE (03:05)
[2017-01-31] MEDS ORDERED: Iopamidol 612 MG/ML 75 ML Bottle IVPUSH STA (03:07)
[2017-01-31 06:25] LABS: CHLORIDE,CL 108 mmol/L (98-110); SODIUM,NA 136 mmol/L (136-146)
[2017-01-31] MEDS: Insulin Aspart 100 Units/ML 3 ML Pen SUBCUT SCH ×5 (07:35→16:45)
[2017-01-31] MEDS: Insulin Detemir 100 Units/ML 3 ML Pen SUBCUT SCH ×2 (08:39→20:47)
[2017-01-31] MEDS ORDERED: Acetaminophen 325 MG Tab PO PRN (09:59)
[2017-01-31] MEDS ORDERED: Bisacodyl 10 MG Supp RECTAL PRN (09:59)
[2017-01-31] MEDS ORDERED: Magnesium Hydroxide 400 MG/5 ML Susp 30 ML Cup PO PRN (09:59)
[2017-01-31] MEDS ORDERED: Carboxymethylcellulose Sodium 0.5% Ophth Soln 0.4 ML UD Box of 30 EYERT PRN (09:59)
--- NOTE | 2017-01-31 10:32 | PCM.HP ---
H&P History of Present Illness - General Admit Problem/Dx: Admission Diagnosis/Problem Admission Diagnosis/Problem Hypoxemia - History of Present Illness Initial Comments - Free Text/Narative: 71 yo female with pmh of DM, CKD, and CAD who presents with acute onset shortness of breath. Patient reports last night developing chest congestion with clear white sputum. Her shortness of breath was worse with lying down. She was brought to the ED. CXR was unremarkable. CT chest angio reported bilateral pleural effusions, no PE. She was given lasix and had improvement in her symptoms. She reports she was on bumex but this was discontinued last week due to her concerns about her elevated BUN. - Related Data Allergies/Adverse Reactions: Allergies Allergy/AdvReac Type Severity Reaction Status Date / Time carvedilol Allergy UNKNOWN Verified 01/30/17 22:43 cephalexin Allergy UNKNOWN Verified 01/30/17 22:43 codeine Allergy UNKNOWN Verified 01/30/17 22:43 erythromycin base Allergy UNKNOWN Verified 01/30/17 22:43 levofloxacin Allergy UNKNOWN Verified 01/30/17 22:43 meperidine [From Demerol] Allergy UNKNOWN Verified 01/30/17 22:43 Penicillins Allergy Swelling Verified 01/30/17 22:42 Ndcyvmc-Phj-Lgm Reductase Allergy UNKNOWN Verified 01/30/17 22:43 Inhibitor Home Medications: Home Meds Levothyroxine 112 mcg PO DAILY 05/26/14 [History] Acetaminophen [Arthritis Pain Relief] 650 mg PO Q4HR PRN 01/30/17 [History] Bisacodyl 10 mg RECTAL DAILY PRN 01/30/17 [History] Clopidogrel Bisulfate [Plavix] 75 mg PO DAILY 01/30/17 [History] Dextran 70/Hypromellose [Artificial Tears] 1 drop EYERT ASDIRECTED PRN 01/30/17 [History] Insulin Aspart [NovoLOG] 5 unit SUBCUT TIDAC 01/30/17 [History] Insulin Detemir [Levemir] 45 units SUBCUT BID 01/30/17 [History] Magnesium Hydroxide [Milk of Magnesia] 30 ml PO DAILY PRN 01/30/17 [History] Multivitamin [Multivitamins] 1 tab PO DAILY 01/30/17 [History] Nitroglycerin [Nitro-Dur 0.2 MG/Hr] 1 patch TRDERM DAILY 01/30/17 [History] Triamcinolone Acetonide [Triamcinolone Acetonide 0.1% Crm] 1 applic TOP BID [History] Aspirin 162 mg PO DAILY 01/31/17 [History] Past Medical History HEENT History: Reports: Cataract Cardiovascular History: Reports: Afib, CAD, Heart Failure, Hypertension, Stents Other Cardiovascular History: 06/08/16 cardiac arrest Respiratory History: Reports: None Genitourinary History: Reports: None, UTI, Recurrent [employer] CO[employer]INATOR History: Reports: , Other (See Below) Other OB/BYN History: C section, hysterectomy Musculoskeletal History: Reports: Arthritis Other Musculoskeletal History: right foot non weight bearing Neurological History: Reports: CVA Psychiatric History: Reports: None Endocrine/Metabolic History: Reports: Diabetes, Type II, Hypothyroidism Hematologic History: Reports: Anticoagulation Therapy Immunologic History: Reports: None Oncologic (Cancer) History: Reports: None Dermatologic History: Reports: None - Infectious Disease History Infectious Disease History: Reports: Chicken Pox, Measles, Mumps - Past Surgical History Head Surgeries/Procedures: Reports: None HEENT Surgical History: Reports: Cataract Surgery, Other (See Below) Other HEENT Surgeries/Procedures: uvolectomy Other Cardiovascular Surgeries/Procedures: Dr Thorpe put in 2 stents 2 weeks ago. had stents in leg june 25 GI Surgical History: Reports: Cholecystectomy Female Surgical History: Reports: Section, Hysterectomy Musculoskeletal Surgical History: Reports: Other (See Below) Social & Family History - Family History Family Medical History: Noncontributory HEENT: Reports: Cataract Cardiac: Reports: Hypertension Respiratory: Reports: None GI: Reports: Irritable Bowel Syndrome : Reports: None OBGYN: Reports: None Musculoskeletal: Reports: Arthritis Neurological: Reports: None Psychiatric: Reports: None Endocrine/Metabolic: Reports: Diabetes, Type I Hematologic: Reports: None Oncologic: Reports: Other (See Below) Other Oncologic Family History: stomach cancer - Tobacco Use Smoking Status *Q: Never Smoker Used Tobacco, but Quit: No Tobacco Use Comment: STOPPED SMOKING MORE THAN 20 YRS AGO Second Hand Smoke Exposure: No - Caffeine Use Caffeine Use: Reports: Coffee Caffeine Use Comment: 1 cup a day - Alcohol Use Days Per Week of Alcohol Use: 0 - Recreational Drug Use Recreational Drug Use: No H&P Review of Systems - Review of Systems: Review Of Systems: ROS reveals no pertinent complaints other than HPI. Exam - Exam Exam: See Below - Vital Signs Vital Signs: Last Vital Signs Temp 36.8 C 01/31/17 08:36 Pulse 81 01/31/17 08:36 Resp 20 01/31/17 08:36 BP 132/58 L 01/31/17 08:36 Pulse Ox 98 01/31/17 08:36 Weight: 80.9 kg - Exam General: Alert, Oriented, 4 HEENT: Mucosa Moist & [place] Neck: Supple Lungs: Clear to Auscultation, Normal Respiratory Effort Cardiovascular: Regular Rate, Regular Rhythm GI/Abdominal Exam: Normal Bowel Sounds, Non-Tender, No Distention Extremities: Other (mulitiple diabetic toe sores.) - Patient Data Lab Results Last 24 hrs: Laboratory Results - last 24 hr 01/31/17 01/31/17 01/31/17 Range/Units 05:50 05:50 07:00 WBC 8.02 (4.0-11.0) K/uL RBC 3.30 L (4.30-5.90) M/uL Hgb 9.8 L (12.0-16.0) g/dL Hct 28.3 L (36.0-46.0) % MCV 85.8 (80.0-98.0) fL MCH 29.7 (27.0-32.0) pg MCHC 34.6 (31.0-37.0) g/dL RDW Std Deviation 41.4 (28.0-62.0) fl RDW Coeff of Irvin 13 (11.0-15.0) % Plt Count 198 (150-400) K/uL MPV 8.80 (7.40-12.00) fL Neut % (Auto) 74.3 (48.0-80.0) % Lymph % (Auto) 16.3 (16.0-40.0) % [place] % (Auto) 8.1 (0.0-15.0) % Eos % (Auto) 1.2 (0.0-7.0) % Baso % (Auto) 0.1 (0.0-1.5) % Neut # (Auto) 6.0 H (1.4-5.7) K/uL Lymph # (Auto) 1.3 (0.6-2.4) K/uL [place] # (Auto) 0.7 (0.0-0.8) K/uL Eos # (Auto) 0.1 (0.0-0.7) K/uL Baso # (Auto) 0.0 (0.0-0.1) K/uL Nucleated RBC % 0.0 /100WBC Nucleated RBCs # 0 K/uL Sodium 136 (136-146) mmol/L Potassium 4.1 (3.5-5.1) mmol/L Chloride 108 (98-110) mmol/L Carbon Dioxide 21 (21-31) mmol/L BUN 48 H (6.0-23.0) mg/dL Creatinine 1.2 (0.6-1.5) mg/dL Est Cr Clr Drug Dosing TNP Estimated GFR (MDRD) 44.2 ml/min Glucose 178 H (60-110) mg/dL POC Glucose 140 H (60-110) mg/dL Calcium 8.4 L (8.8-10.8) mg/dL Result Diagrams: 02/01/17 05:44 02/01/17 05:44 *Q Meaningful Use (ADM) - VTE *Q VTE Criteria *Q: - Stroke *Q Stroke Criteria *Q: - AMI *Q AMI Criteria *Q: Problem List Initiated/Reviewed/Updated: Yes Orders Last 24hrs: Active Orders 24 hr Category Date Time Status Antiembolic Devices [RC] PER UNIT ROUTINE Care 01/31/17 10:13 Ordered Communication Order [RC] ROUTINE Care 01/31/17 10:20 Ordered Intake and Output [RC] QSHIFT Care 01/31/17 10:12 Ordered Oxygen Therapy [RC] PRN Care 01/31/17 10:10 Ordered POC Glucose [Blood Glucose Check, Bedside] [RC] Care 01/31/17 07:30 Active QIDACANDBED Telemetry Monitoring [Cardiac Monitoring] [RC] . Care 01/31/17 02:41 Active DIRECTED VTE/DVT Education [RC] PER UNIT ROUTINE Care 01/31/17 10:10 Ordered Vital Signs [RC] Q4H Care 01/31/17 10:10 Ordered ADA Diabetic [[place] [employer] Diet] [DIET Diet 01/31/17 Breakfast Active ] Echo 2D wo Cont [US] Routine Exams 01/31/17 10:00 Ordered BASIC METABOLIC PANEL,BMP [CHEM] AM Lab 02/01/17 05:11 Ordered BASIC METABOLIC PANEL,BMP [CHEM] AM Lab 02/02/17 05:11 Ordered CBC WITH AUTO DIFF [HEME] AM Lab 02/01/17 05:11 Ordered CBC WITH AUTO DIFF [HEME] AM Lab 02/02/17 05:11 Ordered Acetaminophen Med 01/31/17 09:59 Ordered 650 mg PO Q4HR PRN Aspirin Med 02/01/17 09:00 Ordered 162 mg PO DAILY Bisacodyl [Dulcolax] Med 01/31/17 09:59 Ordered 10 mg RECTAL ASDIRECTED PRN Clopidogrel [Plavix] Med 01/31/17 10:00 Ordered 75 mg PO DAILY Dextran 70/Hypromellose [Artificial Tears] Med 01/31/17 09:59 Ordered 1 drop EYERT ASDIRECTED PRN Doxycycline [Vibramycin] 100 mg Med 01/31/17 01:56 Active Sodium Chloride 0.9% [Normal Saline] 100 ml IV Q12H Furosemide [Lasix] Med 01/31/17 10:15 Ordered 40 mg IVPUSH BID Heparin Sodium Med 01/31/17 21:00 Ordered 5,000 units SUBCUT Q12HR Insulin Aspart [NovoLOG] Med 01/31/17 11:30 Ordered 5 unit SUBCUT TIDAC Insulin Aspart [NovoLOG] Med 01/31/17 07:30 Active See Protocol SUBCUT TIDAC Insulin Detemir [Levemir] Med 01/31/17 08:00 Active 45 unit SUBCUT BID@0800,2100 Levothyroxine Med 02/01/17 09:00 Ordered 112 mcg PO DAILY Magnesium Hydroxide [Milk of Magnesia] Med 01/31/17 09:59 Ordered 30 ml PO ASDIRECTED PRN Nitroglycerin [Nitro-Dur 0.2 MG/Hr] Med 02/01/17 09:00 Ordered 1 patch TRDERM DAILY Sequential Compression Device [OM.PC] Per Unit Routine Oth 01/31/17 10:12 Ordered Resuscitation Status Routine Resus Stat 01/31/17 10:10 Ordered Medication Orders Acetaminophen (Tylenol) 650 mg PO Q4HR PRN PRN Reason: PAIN AND FEVER Artificial Tears (Refresh Plus 0.5%) 1 each EYERT ASDIRECTED PRN PRN Reason: Dry Eyes Aspirin (Aspirin) 162 mg PO DAILY REMIGIO Bisacodyl (Dulcolax) 10 mg RECTAL ASDIRECTED PRN PRN Reason: Constipation Clopidogrel Bisulfate (Plavix) 75 mg PO DAILY [facility] Furosemide (Lasix) 40 mg IVPUSH BID [facility] Heparin Sodium (Porcine) (Heparin Sodium) 5,000 units SUBCUT Q12HR [facility] Sodium Chloride (Normal Saline) 250 mls @ 999 mls/hr IV STAT [facility] Last Admin: 01/31/17 01:46 Dose: 999 mls/hr Doxycycline Hyclate 100 mg/ (Sodium Chloride) 100 mls @ 100 mls/hr IV Q12H [facility] Last Admin: 01/31/17 02:41 Dose: 100 mls/hr Insulin Aspart (Novolog) 0 unit SUBCUT TIDAC [facility] PRN Reason: Protocol Last Admin: 01/31/17 07:35 Dose: Not Given Insulin Aspart (Novolog) 5 unit SUBCUT TIDAC [facility] Insulin Detemir (Levemir) 45 unit SUBCUT BID@0800,2100 [facility] Last Admin: 01/31/17 08:39 Dose: 45 units Levothyroxine Sodium (Levothyroxine) 112 mcg PO ACBREAKFAST [facility] Magnesium Hydroxide (Milk Of Magnesia) 30 ml PO ASDIRECTED PRN PRN Reason: Constipation Nitroglycerin (Nitro-Dur 0.2 Mg/Hr) 0.2 mg TRDERM Q24H [facility] Sodium Chloride (Saline Flush) 10 ml FLUSH ASDIRECTED PRN PRN Reason: Keep Vein Open Sodium Chloride (Saline Flush) 2.5 ml FLUSH ASDIRECTED PRN PRN Reason: Keep Vein Open Assessment/Plan Comment:: 71 yo female with pmh of CAD, DM, CKD who presents with signs and symptoms concerning for pulmonary edema. We will continue diuresing with lasix. For UTI doxycycline was started in ED due to multiple drug allergies. Echocardiogram has been ordered.
[2017-01-31] MEDS: Clopidogrel 75 MG Tab PO SCH (10:49)
[2017-01-31] MEDS: Furosemide 40 MG/4 ML VIAL IVPUSH SCH ×2 (10:49→20:34)
--- NOTE | 2017-01-31 20:03 | CR ---
EXAM DATE: 01/31/17 PATIENT'S AGE: 71 Patient: YADIRA TORRES Facility: [place], [place] Site . Site : 1945 Study: XRay Chest [id number]/2017 11:49:28 PM Ordering Physician: Doctor Monaco Final Report: INDICATION: Shortness of breath TECHNIQUE: Chest 2 views. COMPARISON: 07/02/2016 FINDINGS: Cardiovascular and mediastinum: Heart size and vasculature are normal in caliber and appearance. Mediastinum is within normal limits. Lungs and pleural spaces: Lungs are clear. No sign of infiltrate or mass. No sign of pleural effusion. No pneumothorax. Bones and soft tissues: Scoliosis thoracolumbar spine. IMPRESSION: Unremarkable chest. Dictated by Misha Joe MD @ 01/30/2017 11:53:57 PM Dictated by: Misha Joe MD @ 01/30/2017 23:54:03 (Electronic Signature) Report Signed by Proxy. WENDY
--- NOTE | 2017-01-31 20:22 | CT ---
EXAM DATE: 01/31/17 PATIENT'S AGE: 71 Patient: YADIRA TORRES Facility: [place], [place] Site . Site : 1945 Study: CT Chest Angio [id number]/[id number] 2:39:51 AM Ordering Physician: Shalom Wood Final Report: INDICATION: Shortness of breath TECHNIQUE: CT chest pulmonary angiogram acquired with IV contrast. 75 cc Isovue 300 COMPARISON: None FINDINGS: Cardiovascular structures: Normal vascular enhancement of the pulmonary arteries , no sign of pulmonary embolism. Heart size is normal. No sign of aneurysm or dissection in the thoracic aorta. Mediastinum and zaid: No mass or adenopathy. Lungs: Clear. Pleura and pericardium: Bilateral pleural effusions. Chest wall and axilla: No mass or adenopathy. Bones: No significant findings. Upper abdomen: Unremarkable. IMPRESSION: No evidence of pulmonary embolus. Bilateral pleural effusions. Dictated by Misha Joe MD @ 01/31/2017 3:20:42 AM Dictated by: Misha Joe MD @ 01/31/2017 03:20:54 (Electronic Signature) Report Signed by Proxy. [facility], [place]
[2017-01-31] MEDS: Heparin Sodium 5,000 Units/ML Vial SUBCUT SCH (20:41)
[2017-02-01] MEDS: Doxycycline 100 MG in Sodium Chloride 0.9% 100 ML IV SCH (01:35)
[2017-02-01] MEDS ORDERED: 50% Dextrose in Water 50 ML Syringe IVPUSH ONE (04:29)
[2017-02-01 06:39] LABS: CHLORIDE,CL 107 mmol/L (98-110); SODIUM,NA 139 mmol/L (136-146)
[2017-02-01] MEDS: Levothyroxine 112 MCG Tab PO SCH (06:52)
[2017-02-01] MEDS: Insulin Aspart 100 Units/ML 3 ML Pen SUBCUT SCH ×5 (08:27→17:45)
[2017-02-01] MEDS: Aspirin 81 MG Tab.Chew PO SCH (08:29)
[2017-02-01] MEDS: Clopidogrel 75 MG Tab PO SCH (08:30)
[2017-02-01] MEDS: Insulin Detemir 100 Units/ML 3 ML Pen SUBCUT SCH ×2 (08:41→21:11)
[2017-02-01] MEDS: Furosemide 40 MG/4 ML VIAL IVPUSH SCH ×2 (09:28→20:46)
[2017-02-01] MEDS: Heparin Sodium 5,000 Units/ML Vial SUBCUT SCH ×2 (09:28→20:46)
[2017-02-01] MEDS: Nitroglycerin 0.2 MG/HR Transdermal Patch TRDERM SCH (09:30)
--- NOTE | 2017-02-01 12:11 | PCM.PN ---
- General Info Date of Service: 02/01/17 Admission Dx/Problem (Free Text): Admission Diagnosis/Problem Admission Diagnosis/Problem Hypoxemia Subjective Update: Continues to have Orthopnea and some intermittently dyspnea. Denies chest pain or cough. Functional Status: Reports: Pain Controlled, Tolerating Diet, Urinating. Denies : Ambulating - Review of Systems Pulmonary: Reports: Shortness of Breath. Denies: Cough Cardiovascular: Reports: Dyspnea on Exertion, Orthopnea, Edema. Denies: Chest Pain, Lightheadedness Gastrointestinal: Reports: No Symptoms. Denies: Abdominal Pain, Nausea, Vomiting Skin: Reports: No Symptoms Psychiatric: Reports: No Symptoms - Patient Data Vitals - Most Recent: Last Vital Signs Temp 96.4 F 02/01/17 11:55 Pulse 76 02/01/17 11:55 Resp 22 H 02/01/17 11:55 BP 179/80 H 02/01/17 11:55 Pulse Ox 98 02/01/17 11:55 Weight - Most Recent: 80.9 kg I&O - Last 24 Hours: Intake & Output 01/31/17 02/01/17 02/01/17 22:59 06:59 14:59 Intake Total 880 1200 Output Total 1600 950 Balance -720 250 Lab Results Last 24 Hours: Laboratory Results - last 24 hr 01/31/17 01/31/17 02/01/17 Range/Units 16:16 20:29 04:07 WBC (4.0-11.0) K/uL RBC (4.30-5.90) M/uL Hgb (12.0-16.0) g/dL Hct (36.0-46.0) % MCV (80.0-98.0) fL MCH (27.0-32.0) pg MCHC (31.0-37.0) g/dL RDW Std Deviation (28.0-62.0) fl RDW Coeff of Irvin (11.0-15.0) % Plt Count (150-400) K/uL MPV (7.40-12.00) fL Neut % (Auto) (48.0-80.0) % Lymph % (Auto) (16.0-40.0) % [place] % (Auto) (0.0-15.0) % Eos % (Auto) (0.0-7.0) % Baso % (Auto) (0.0-1.5) % Neut # (Auto) (1.4-5.7) K/uL Lymph # (Auto) (0.6-2.4) K/uL [place] # (Auto) (0.0-0.8) K/uL Eos # (Auto) (0.0-0.7) K/uL Baso # (Auto) (0.0-0.1) K/uL Nucleated RBC % /100WBC Nucleated RBCs # K/uL Sodium (136-146) mmol/L Potassium (3.5-5.1) mmol/L Chloride (98-110) mmol/L Carbon Dioxide (21-31) mmol/L BUN (6.0-23.0) mg/dL Creatinine (0.6-1.5) mg/dL Est Cr Clr Drug Dosing Estimated GFR (MDRD) ml/min Glucose (60-110) mg/dL POC Glucose 95 136 H 26 L (60-110) mg/dL Calcium (8.8-10.8) mg/dL 02/01/17 02/01/17 02/01/17 Range/Units 04:23 05:33 05:44 WBC 6.11 (4.0-11.0) K/uL RBC 3.18 L (4.30-5.90) M/uL Hgb 9.5 L (12.0-16.0) g/dL Hct 27.9 L (36.0-46.0) % MCV 87.7 (80.0-98.0) fL MCH 29.9 (27.0-32.0) pg MCHC 34.1 (31.0-37.0) g/dL RDW Std Deviation 43.7 (28.0-62.0) fl RDW Coeff of Irvin 14 (11.0-15.0) % Plt Count 195 (150-400) K/uL MPV 9.10 (7.40-12.00) fL Neut % (Auto) 79.9 (48.0-80.0) % Lymph % (Auto) 7.5 L (16.0-40.0) % [place] % (Auto) 11.5 (0.0-15.0) % Eos % (Auto) 1.1 (0.0-7.0) % Baso % (Auto) 0.0 (0.0-1.5) % Neut # (Auto) 4.9 (1.4-5.7) K/uL Lymph # (Auto) 0.5 L (0.6-2.4) K/uL [place] # (Auto) 0.7 (0.0-0.8) K/uL Eos # (Auto) 0.1 (0.0-0.7) K/uL Baso # (Auto) 0.0 (0.0-0.1) K/uL Nucleated RBC % 0.0 /100WBC Nucleated RBCs # 0 K/uL Sodium (136-146) mmol/L Potassium (3.5-5.1) mmol/L Chloride (98-110) mmol/L Carbon Dioxide (21-31) mmol/L BUN (6.0-23.0) mg/dL Creatinine (0.6-1.5) mg/dL Est Cr Clr Drug Dosing Estimated GFR (MDRD) ml/min Glucose (60-110) mg/dL POC Glucose 27 L 209 H (60-110) mg/dL Calcium (8.8-10.8) mg/dL 02/01/17 02/01/17 02/01/17 Range/Units 05:44 06:50 07:58 WBC (4.0-11.0) K/uL RBC (4.30-5.90) M/uL Hgb (12.0-16.0) g/dL Hct (36.0-46.0) % MCV (80.0-98.0) fL MCH (27.0-32.0) pg MCHC (31.0-37.0) g/dL RDW Std Deviation (28.0-62.0) fl RDW Coeff of Irvin (11.0-15.0) % Plt Count (150-400) K/uL MPV (7.40-12.00) fL Neut % (Auto) (48.0-80.0) % Lymph % (Auto) (16.0-40.0) % [place] % (Auto) (0.0-15.0) % Eos % (Auto) (0.0-7.0) % Baso % (Auto) (0.0-1.5) % Neut # (Auto) (1.4-5.7) K/uL Lymph # (Auto) (0.6-2.4) K/uL [place] # (Auto) (0.0-0.8) K/uL Eos # (Auto) (0.0-0.7) K/uL Baso # (Auto) (0.0-0.1) K/uL Nucleated RBC % /100WBC Nucleated RBCs # K/uL Sodium 139 (136-146) mmol/L Potassium 3.9 (3.5-5.1) mmol/L Chloride 107 (98-110) mmol/L Carbon Dioxide 23 (21-31) mmol/L BUN 51 H (6.0-23.0) mg/dL Creatinine 1.4 (0.6-1.5) mg/dL Est Cr Clr Drug Dosing TNP Estimated GFR (MDRD) 37.0 ml/min Glucose 191 H (60-110) mg/dL POC Glucose 221 H 201 H (60-110) mg/dL Calcium 8.4 L (8.8-10.8) mg/dL 02/01/17 Range/Units 11:31 WBC (4.0-11.0) K/uL RBC (4.30-5.90) M/uL Hgb (12.0-16.0) g/dL Hct (36.0-46.0) % MCV (80.0-98.0) fL MCH (27.0-32.0) pg MCHC (31.0-37.0) g/dL RDW Std Deviation (28.0-62.0) fl RDW Coeff of Irvin (11.0-15.0) % Plt Count (150-400) K/uL MPV (7.40-12.00) fL Neut % (Auto) (48.0-80.0) % Lymph % (Auto) (16.0-40.0) % [place] % (Auto) (0.0-15.0) % Eos % (Auto) (0.0-7.0) % Baso % (Auto) (0.0-1.5) % Neut # (Auto) (1.4-5.7) K/uL Lymph # (Auto) (0.6-2.4) K/uL [place] # (Auto) (0.0-0.8) K/uL Eos # (Auto) (0.0-0.7) K/uL Baso # (Auto) (0.0-0.1) K/uL Nucleated RBC % /100WBC Nucleated RBCs # K/uL Sodium (136-146) mmol/L Potassium (3.5-5.1) mmol/L Chloride (98-110) mmol/L Carbon Dioxide (21-31) mmol/L BUN (6.0-23.0) mg/dL Creatinine (0.6-1.5) mg/dL Est Cr Clr Drug Dosing Estimated GFR (MDRD) ml/min Glucose (60-110) mg/dL POC Glucose 202 H (60-110) mg/dL Calcium (8.8-10.8) mg/dL Med Orders - Current: Current Medications Acetaminophen (Tylenol) 650 mg PO Q4HR PRN PRN Reason: PAIN AND FEVER Artificial Tears (Refresh Plus 0.5%) 1 each EYERT ASDIRECTED PRN PRN Reason: Dry Eyes Aspirin (Aspirin) 162 mg PO DAILY [facility] Last Admin: 02/01/17 08:29 Dose: 162 mg Bisacodyl (Dulcolax) 10 mg RECTAL ASDIRECTED PRN PRN Reason: Constipation Clopidogrel Bisulfate (Plavix) 75 mg PO DAILY [facility] Last Admin: 02/01/17 08:30 Dose: 75 mg Furosemide (Lasix) 40 mg IVPUSH BID [facility] Last Admin: 02/01/17 09:28 Dose: 40 mg Heparin Sodium (Porcine) (Heparin Sodium) 5,000 units SUBCUT Q12HR [facility] Last Admin: 02/01/17 09:28 Dose: 5,000 units Sodium Chloride (Normal Saline) 250 mls @ 999 mls/hr IV STAT [facility] Last Admin: 01/31/17 01:46 Dose: 999 mls/hr Doxycycline Hyclate 100 mg/ (Sodium Chloride) 100 mls @ 100 mls/hr IV Q12H [facility] Last Admin: 02/01/17 01:35 Dose: 100 mls/hr Insulin Aspart (Novolog) 0 unit SUBCUT TIDAC REMIGIO PRN Reason: Protocol Last Admin: 02/01/17 08:27 Dose: 2 units Insulin Aspart (Novolog) 5 unit SUBCUT TIDAC [facility] Last Admin: 02/01/17 08:42 Dose: Not Given Insulin Detemir (Levemir) 45 unit SUBCUT BID@0800,2100 [facility] Last Admin: 02/01/17 08:41 Dose: Not Given Levothyroxine Sodium (Levothyroxine) 112 mcg PO ACBREAKFAST [facility] Last Admin: 02/01/17 06:52 Dose: 112 mcg Magnesium Hydroxide (Milk Of Magnesia) 30 ml PO ASDIRECTED PRN PRN Reason: Constipation Nitroglycerin (Nitro-Dur 0.2 Mg/Hr) 0.2 mg TRDERM Q24H [facility] Last Admin: 02/01/17 09:30 Dose: 0.2 mg Sodium Chloride (Saline Flush) 10 ml FLUSH ASDIRECTED PRN PRN Reason: Keep Vein Open Sodium Chloride (Saline Flush) 2.5 ml FLUSH ASDIRECTED PRN PRN Reason: Keep Vein Open Discontinued Medications Dextrose/Water (Dextrose 50% In Water) 50 ml IVPUSH ONETIME ONE Stop: 02/01/17 04:30 Last Admin: 02/01/17 04:41 Dose: 50 ml Furosemide (Lasix) 40 mg IVPUSH NOW ONE Stop: 01/30/17 22:56 Last Admin: 01/30/17 23:03 Dose: 40 mg Doxycycline Hyclate 100 mg/ (Sodium Chloride) 100 mls @ 100 mls/hr IV Q12H [facility] Last Admin: 01/31/17 07:49 Dose: Not Given Insulin Detemir (Levemir) 45 unit SUBCUT ASDIRECTED [facility] Iopamidol (Isovue-300 (61%)) 75 ml IVPUSH ONETIME ONE Stop: 01/31/17 03:06 Last Admin: 01/31/17 07:49 Dose: Not Given Iopamidol (Isovue-300 (61%)) 75 ml IVPUSH ONETIME STA Stop: 01/31/17 03:08 Last Admin: 01/31/17 03:07 Dose: 75 ml Nitroglycerin (Nitro-Bid 2%) 1 gm TOP ONETIME ONE Stop: 01/30/17 22:56 Last Admin: 01/30/17 23:07 Dose: 1 gm - Exam General: Alert, Oriented, Cooperative, No Acute Distress Neck: JVD Lungs: Crackles (fine crackles bibasilar) Cardiovascular: Regular Rate, Regular Rhythm Extremities: Pedal Edema (+1 pitting to R and scant to L ) Wound/Incisions: Other (ulcer to R heel and R great toe, remain intact with aquacel dressings in place. no erythema noted. ) Neurological: No New Focal Deficit Psy/Mental Status: Alert, Normal Affect, Normal Mood - Problem List & Annotations (1) CHF exacerbation SNOMED Code(s): 80193768 Code(s): I50.9 - HEART FAILURE, UNSPECIFIED Status: Acute Current Visit: Yes (2) Orthopnea SNOMED Code(s): 72879225 Code(s): R06.01 - ORTHOPNEA Status: Acute Current Visit: Yes (3) Chronic kidney insufficiency SNOMED Code(s): 331593592 Code(s): N18.9 - CHRONIC KIDNEY DISEASE, UNSPECIFIED Status: Chronic Priority: High Current Visit: No Qualifiers: Chronic kidney disease stage: unspecified stage Qualified Code(s): N18.9 - Chronic kidney disease, unspecified (4) Dementia SNOMED Code(s): 52998073 Code(s): F03.90 - UNSPECIFIED DEMENTIA WITHOUT BEHAVIORAL DISTURBANCE Status: Chronic Current Visit: No Qualifiers: Dementia type: unspecified type (5) DM type 2 (diabetes mellitus, type 2) SNOMED Code(s): 68075899 Code(s): E11.9 - TYPE 2 DIABETES MELLITUS WITHOUT COMPLICATIONS Status: Chronic Current Visit: Yes Qualifiers: Diabetes mellitus complication status: with skin complications Diabetes mellitus complication detail: with foot ulcer Diabetes mellitus halfway insulin use: without halfway use Qualified Code(s): E11.621 - Type 2 diabetes mellitus with foot ulcer; L97.509 - Non-pressure chronic ulcer of other part of unspecified foot with unspecified severity; L97.509 - Non- pressure chronic ulcer of other part of unspecified foot with unspecified severity; L97.509 - Non-pressure chronic ulcer of other part of unspecified foot with unspecified severity; L97.509 - Non-pressure chronic ulcer of other part of unspecified foot with unspecified severity - Problem List Review Problem List Initiated/Reviewed/Updated: Yes - My Orders Last 24 Hours: My Active Orders 02/01/17 08:15 Daily Weight [Height and Weight] [RC] DAILY - Plan Plan:: 71 yo female with pmh of CAD, DM, CKD who presents with signs and symptoms concerning for pulmonary edema. 1. CHF exacerbation: ECHO pending, will obtain records from Dr. Thorpe. Continue diuresing with Lasix, BUN did elevate slightly, will monitor. Daily weights and strict I/O 2. DM type 2: Had episode of hypoglycemia, will hold Levemir dose this morning, and cut back evening dose and monitor early am glucose. Continue Novolog SSI with meals. VTE prophlyaxis: SCDs, will check hemoccult due to hgb Dispo: Possible DC back to [place] in am.
[2017-02-02 06:09] LABS: CHLORIDE,CL 103 mmol/L (98-110); SODIUM,NA 138 mmol/L (136-146)
[2017-02-02] MEDS: Insulin Aspart 100 Units/ML 3 ML Pen SUBCUT SCH (06:32)
[2017-02-02] MEDS: Levothyroxine 112 MCG Tab PO SCH (06:32)
[2017-02-02 08:24] VITALS: BP 133/66
[2017-02-02] MEDS: Aspirin 81 MG Tab.Chew PO SCH (08:34)
[2017-02-02] MEDS: Clopidogrel 75 MG Tab PO SCH (08:34)
[2017-02-02] MEDS: Nitroglycerin 0.2 MG/HR Transdermal Patch TRDERM SCH (08:35)
[2017-02-02] MEDS: Heparin Sodium 5,000 Units/ML Vial SUBCUT SCH (08:35)
[2017-02-02] MEDS: Furosemide 40 MG/4 ML VIAL IVPUSH SCH (08:35)
[2017-02-02] MEDS: Insulin Detemir 100 Units/ML 3 ML Pen SUBCUT SCH (08:46)
--- NOTE | 2017-02-02 09:54 | PCM.DCSUM1 ---
Discharge Summary - Hospital Course Brief History: 71 yo female with pmh of DM, CKD, and CAD who presents with acute onset shortness of breath. Patient reports last night developing chest congestion with clear white sputum. Her shortness of breath was worse with lying down. She was brought to the ED. CXR was unremarkable. CT chest angio reported bilateral pleural effusions, no PE. She was given lasix and had improvement in her symptoms. She reports she was on bumex but this was discontinued last week due to her concerns about her elevated BUN. - Discharge Data Discharge Date: 02/02/17 Discharge Disposition: DC/Tfer to [facility] 03 Condition: Good - Discharge Diagnosis/Problem(s) (1) CHF exacerbation SNOMED Code(s): 94900286 ICD Code: I50.9 - HEART FAILURE, UNSPECIFIED Status: Acute Current Visit : Yes Qualifiers: Congestive heart failure type: systolic Qualified Code(s): I50.23 - Acute on chronic systolic (congestive) heart failure (2) Orthopnea SNOMED Code(s): 06253390 ICD Code: R06.01 - ORTHOPNEA Status: Acute Current Visit: Yes (3) Chronic kidney insufficiency SNOMED Code(s): 203914664 ICD Code: N18.9 - CHRONIC KIDNEY DISEASE, UNSPECIFIED Status: Chronic Priority: High Current Visit: No Qualifiers: Chronic kidney disease stage: unspecified stage Qualified Code(s): N18.9 - Chronic kidney disease, unspecified (4) Dementia SNOMED Code(s): 56083269 ICD Code: F03.90 - UNSPECIFIED DEMENTIA WITHOUT BEHAVIORAL DISTURBANCE Status: Resolved Current Visit: No Qualifiers: Dementia type: unspecified type (5) DM type 2 (diabetes mellitus, type 2) SNOMED Code(s): 15222576 ICD Code: E11.9 - TYPE 2 DIABETES MELLITUS WITHOUT COMPLICATIONS Status: Chronic Current Visit: Yes Qualifiers: Diabetes mellitus complication status: with skin complications Diabetes mellitus complication detail: with foot ulcer Diabetes mellitus lobsterman insulin use: without lobsterman use Qualified Code(s): E11.621 - Type 2 diabetes mellitus with foot ulcer; L97.509 - Non-pressure chronic ulcer of other part of unspecified foot with unspecified severity; L97.509 - Non- pressure chronic ulcer of other part of unspecified foot with unspecified severity; L97.509 - Non-pressure chronic ulcer of other part of unspecified foot with unspecified severity; L97.509 - Non-pressure chronic ulcer of other part of unspecified foot with unspecified severity - Patient Instructions Diet: Diabetic Diet Activity: As Tolerated Showering/Bathing: May Shower Notify Provider of: Fever, Increased Pain, Swelling and Redness, Drainage, Nausea and/or Vomiting Other/Special Instructions: Irrigate right foot wounds with normal saline then apply betadine and dressing daily and apply aquacel AG dressings in between toe ulcers. Continue previous cares. PT/OT to evaluate and treat - Discharge Plan Prescriptions/Med Rec: Furosemide [Lasix] 40 mg PO DAILY #30 tablet Home Medications: Home Meds Levothyroxine 112 mcg PO DAILY 05/26/14 [History] Acetaminophen [Arthritis Pain Relief] 650 mg PO Q4HR PRN 01/30/17 [History] Bisacodyl 10 mg RECTAL DAILY PRN 01/30/17 [History] Clopidogrel Bisulfate [Plavix] 75 mg PO DAILY 01/30/17 [History] Dextran 70/Hypromellose [Artificial Tears] 1 drop EYERT ASDIRECTED PRN 01/30/17 [History] Insulin Aspart [NovoLOG] 5 unit SUBCUT TIDAC 01/30/17 [History] Magnesium Hydroxide [Milk of Magnesia] 30 ml PO DAILY PRN 01/30/17 [History] Multivitamin [Multivitamins] 1 tab PO DAILY 01/30/17 [History] Nitroglycerin [Nitro-Dur 0.2 MG/Hr] 1 patch TRDERM DAILY 01/30/17 [History] Triamcinolone Acetonide [Triamcinolone Acetonide 0.1% Crm] 1 applic TOP BID [History] Aspirin 162 mg PO DAILY 01/31/17 [History] Furosemide [Lasix] 40 mg PO DAILY #30 tablet 02/02/17 [Rx] Insulin Detemir [Levemir] 30 unit SUBCUT BID@0800,2100 pen 02/02/17 [Rx] Referrals: Williams Cesar MD [Physician] - 02/08/17 (next [place] Rounds) - Discharge Summary/Plan Comment DC Time >30 min.: No Discharge Summary/Plan Comment: Discharge Diagnoses: Acute on chronic CHF exacerbation CKD DM type 2 Foot ulcers to Sudeep Limon was admitted and treated for acute on chronic CHF exacerbation. Bumex was stopped at [facility] due to concerns of elevated BUN. There was hope to decrease dosing or change to Lasix but she started having orthopnea and SOB and was brought to the ED. She was treated with Lasix 40 mg IV BID and was diuresed well. She is no longer needing oxygen and is no longer having issues with SOB or orthopnea. She will be discharged back to [facility] today, I will start Lasix 40 mg daily and have spoke with Dr. Cesar who will monitor this and change as needed. I also decreased her Levemir dosing due to hypoglycemia of 20 in the dental sales representative hours. Levemir was decreased to 30 units BID along with Novolog 5 units with each meal. She is to follow up with Dr. Cesar on next [place] rounds and is to return to ED or clinic if concerns should arise. - General Info Date of Service: 02/02/17 Admission Dx/Problem (Free Text: Admission Diagnosis/Problem Admission Diagnosis/Problem Hypoxemia Subjective Update: Doing better this morning, having no shortness of breath and is lying quite flat with no orthopnea. She denies any chest pain or palpitations. Functional Status: Reports: Pain Controlled, Tolerating Diet, Ambulating, Urinating - Review of Systems General: Reports: No Symptoms. Denies: Fever HEENT: Reports: No Symptoms. Denies: Headaches, Sore Throat Pulmonary: Reports: No Symptoms. Denies: Shortness of Breath, Cough, Sputum Cardiovascular: Reports: No Symptoms. Denies: Chest Pain Gastrointestinal: Reports: No Symptoms. Denies: Abdominal Pain, Nausea, Vomiting Musculoskeletal: Reports: No Symptoms. Denies: Neck Pain Psychiatric: Reports: No Symptoms. Denies: Confusion - Patient Data Vitals - Most Recent: Last Vital Signs Temp 98.6 F 02/02/17 08:00 Pulse 79 02/02/17 08:00 Resp 17 02/02/17 08:00 BP 133/66 02/02/17 08:00 Pulse Ox 96 02/02/17 08:00 Weight - Most Recent: 80.9 kg I&O - Last 24 hours: Intake & Output 02/01/17 02/02/17 02/02/17 22:59 06:59 14:59 Intake Total 1500 600 Output Total 2375 900 Balance -875 -300 Lab Results - Last 24 hrs: Laboratory Results - last 24 hr 02/01/17 02/01/17 02/01/17 Range/Units 11:31 16:42 21:00 WBC (4.0-11.0) K/uL RBC (4.30-5.90) M/uL Hgb (12.0-16.0) g/dL Hct (36.0-46.0) % MCV (80.0-98.0) fL MCH (27.0-32.0) pg MCHC (31.0-37.0) g/dL RDW Std Deviation (28.0-62.0) fl RDW Coeff of Irvin (11.0-15.0) % Plt Count (150-400) K/uL MPV (7.40-12.00) fL Neut % (Auto) (48.0-80.0) % Lymph % (Auto) (16.0-40.0) % [place] % (Auto) (0.0-15.0) % Eos % (Auto) (0.0-7.0) % Baso % (Auto) (0.0-1.5) % Neut # (Auto) (1.4-5.7) K/uL Lymph # (Auto) (0.6-2.4) K/uL [place] # (Auto) (0.0-0.8) K/uL Eos # (Auto) (0.0-0.7) K/uL Baso # (Auto) (0.0-0.1) K/uL Nucleated RBC % /100WBC Nucleated RBCs # K/uL Sodium (136-146) mmol/L Potassium (3.5-5.1) mmol/L Chloride (98-110) mmol/L Carbon Dioxide (21-31) mmol/L BUN (6.0-23.0) mg/dL Creatinine (0.6-1.5) mg/dL Est Cr Clr Drug Dosing Estimated GFR (MDRD) ml/min Glucose (60-110) mg/dL POC Glucose 202 H 205 H 258 H (60-110) mg/dL Calcium (8.8-10.8) mg/dL 02/02/17 02/02/17 02/02/17 Range/Units 04:57 04:57 06:00 WBC 5.69 (4.0-11.0) K/uL RBC 3.41 L (4.30-5.90) M/uL Hgb 10.3 L (12.0-16.0) g/dL Hct 29.8 L (36.0-46.0) % MCV 87.4 (80.0-98.0) fL MCH 30.2 (27.0-32.0) pg MCHC 34.6 (31.0-37.0) g/dL RDW Std Deviation 42.9 (28.0-62.0) fl RDW Coeff of Irvin 13 (11.0-15.0) % Plt Count 253 (150-400) K/uL MPV 9.40 (7.40-12.00) fL Neut % (Auto) 62.8 (48.0-80.0) % Lymph % (Auto) 21.6 (16.0-40.0) % [place] % (Auto) 10.5 (0.0-15.0) % Eos % (Auto) 4.9 (0.0-7.0) % Baso % (Auto) 0.2 (0.0-1.5) % Neut # (Auto) 3.6 (1.4-5.7) K/uL Lymph # (Auto) 1.2 (0.6-2.4) K/uL [place] # (Auto) 0.6 (0.0-0.8) K/uL Eos # (Auto) 0.3 (0.0-0.7) K/uL Baso # (Auto) 0.0 (0.0-0.1) K/uL Nucleated RBC % 0.0 /100WBC Nucleated RBCs # 0 K/uL Sodium 138 (136-146) mmol/L Potassium 3.9 (3.5-5.1) mmol/L Chloride 103 (98-110) mmol/L Carbon Dioxide 26 (21-31) mmol/L BUN 59 H (6.0-23.0) mg/dL Creatinine 1.3 (0.6-1.5) mg/dL Est Cr Clr Drug Dosing TNP Estimated GFR (MDRD) 40.3 ml/min Glucose 112 H (60-110) mg/dL POC Glucose 88 (60-110) mg/dL Calcium 8.6 L (8.8-10.8) mg/dL Med Orders - Current: Current Medications Acetaminophen (Tylenol) 650 mg PO Q4HR PRN PRN Reason: PAIN AND FEVER Artificial Tears (Refresh Plus 0.5%) 1 each EYERT ASDIRECTED PRN PRN Reason: Dry Eyes Aspirin (Aspirin) 162 mg PO DAILY [facility] Last Admin: 02/02/17 08:34 Dose: 162 mg Bisacodyl (Dulcolax) 10 mg RECTAL ASDIRECTED PRN PRN Reason: Constipation Clopidogrel Bisulfate (Plavix) 75 mg PO DAILY [facility] Last Admin: 02/02/17 08:34 Dose: 75 mg Furosemide (Lasix) 40 mg IVPUSH BID [facility] Last Admin: 02/02/17 08:35 Dose: 40 mg Heparin Sodium (Porcine) (Heparin Sodium) 5,000 units SUBCUT Q12HR [facility] Last Admin: 02/02/17 08:35 Dose: 5,000 units Sodium Chloride (Normal Saline) 250 mls @ 999 mls/hr IV STAT [facility] Last Admin: 01/31/17 01:46 Dose: 999 mls/hr Insulin Aspart (Novolog) 0 unit SUBCUT TIDAC [facility] PRN Reason: Protocol Last Admin: 02/02/17 06:32 Dose: Not Given Insulin Detemir (Levemir) 30 unit SUBCUT BID@0800,2100 [facility] Last Admin: 02/02/17 08:46 Dose: 30 units Levothyroxine Sodium (Levothyroxine) 112 mcg PO ACBREAKFAST [facility] Last Admin: 02/02/17 06:32 Dose: 112 mcg Magnesium Hydroxide (Milk Of Magnesia) 30 ml PO ASDIRECTED PRN PRN Reason: Constipation Nitroglycerin (Nitro-Dur 0.2 Mg/Hr) 0.2 mg TRDERM Q24H [facility] Last Admin: 02/02/17 08:35 Dose: 0.2 mg Sodium Chloride (Saline Flush) 10 ml FLUSH ASDIRECTED PRN PRN Reason: Keep Vein Open Sodium Chloride (Saline Flush) 2.5 ml FLUSH ASDIRECTED PRN PRN Reason: Keep Vein Open Discontinued Medications Dextrose/Water (Dextrose 50% In Water) 50 ml IVPUSH ONETIME ONE Stop: 02/01/17 04:30 Last Admin: 02/01/17 04:41 Dose: 50 ml Furosemide (Lasix) 40 mg IVPUSH NOW ONE Stop: 10/21/17 22:56 Last Admin: 01/30/17 23:03 Dose: 40 mg Doxycycline Hyclate 100 mg/ (Sodium Chloride) 100 mls @ 100 mls/hr IV Q12H [facility] Last Admin: 01/31/17 07:49 Dose: Not Given Doxycycline Hyclate 100 mg/ (Sodium Chloride) 100 mls @ 100 mls/hr IV Q12H [facility] Last Admin: 02/01/17 01:35 Dose: 100 mls/hr Insulin Aspart (Novolog) 5 unit SUBCUT TIDAC [facility] Last Admin: 02/01/17 12:55 Dose: Not Given Insulin Detemir (Levemir) 45 unit SUBCUT ASDIRECTED [facility] Insulin Detemir (Levemir) 45 unit SUBCUT BID@0800,2100 [facility] Last Admin: 02/01/17 08:41 Dose: Not Given Iopamidol (Isovue-300 (61%)) 75 ml IVPUSH ONETIME ONE Stop: 01/31/17 03:06 Last Admin: 01/31/17 07:49 Dose: Not Given Iopamidol (Isovue-300 (61%)) 75 ml IVPUSH ONETIME STA Stop: 01/31/17 03:08 Last Admin: 01/31/17 03:07 Dose: 75 ml Nitroglycerin (Nitro-Bid 2%) 1 gm TOP ONETIME ONE Stop: 01/30/17 22:56 Last Admin: 01/30/17 23:07 Dose: 1 gm - Exam Quality Assessment: Denies: Supplemental Oxygen General: Reports: Alert, Oriented, Cooperative, No Acute Distress HEENT: Reports: Pupils Equal, Pupils Reactive, EOMI, Mucous Membr. Moist/[place] Lungs: Reports: Clear to Auscultation, Normal Respiratory Effort Cardiovascular: Reports: Regular Rate, Regular Rhythm, No Murmurs, Other (+1 edema to BLE.) GI/Abdominal Exam: Normal Bowel Sounds, Soft, Non-Tender, No Organomegaly, No Distention, No Abnormal Bruit, No Mass, Pelvis Stable Skin: Reports: Warm Wound/Incisions: Reports: Healing Well, Dressing Dry and Intact (R foot). Denies: Erythema Neurological: Reports: No New Focal Deficit Psy/Mental Status: Reports: Alert, Normal Affect, Normal Mood *Q Meaningful Use (DIS) - VTE *Q VTE Criteria *Q: - Stroke *Q Stroke Criteria *Q: - AMI *Q AMI Criteria *Q:
--- NOTE | 2017-02-03 13:40 | ECHO ---
EXAM DATE: 01/31/17 PATIENT'S AGE: 71 The echocardiogram report can be seen in this patient's EMR (Electronic Medical Record) in the Reports section. The report has also been scanned into PACs. WENDY
== END 2017-02-02 11:45 ==
LOC: MW.ED 22:34 → MW.MS 01-31 01:34
PROVIDERS: ADMIT Internal Medicine; ATTEND Internal Medicine
DX: I13.0 Hypertensive heart and chronic kidney disease with heart failure and stage 1 through stage 4 chronic kidney disease, or unspecified chronic kidney disease (principal); I50.23 Acute on chronic systolic (congestive) heart failure; N18.9 Chronic kidney disease, unspecified; E11.22 Type 2 diabetes mellitus with diabetic chronic kidney disease; E11.621 Type 2 diabetes mellitus with foot ulcer; L97.509 Non-pressure chronic ulcer of other part of unspecified foot with unspecified severity; R06.01 Orthopnea; F03.90 Unspecified dementia, unspecified severity, without behavioral disturbance, psychotic disturbance, mood disturbance, and anxiety; E11.649 Type 2 diabetes mellitus with hypoglycemia without coma; E03.9 Hypothyroidism, unspecified; I25.10 Atherosclerotic heart disease of native coronary artery without angina pectoris; I48.91 Unspecified atrial fibrillation; M19.90 Unspecified osteoarthritis, unspecified site; Z87.440 Personal history of urinary (tract) infections; Z86.73 Personal history of transient ischemic attack (TIA), and cerebral infarction without residual deficits; Z87.891 Personal history of nicotine dependence; Z79.4 Long term (current) use of insulin; Z79.02 Long term (current) use of antithrombotics/antiplatelets; Z79.82 Long term (current) use of aspirin; Z79.899 Other long term (current) drug therapy; Z88.0 Allergy status to penicillin; Z88.1 Allergy status to other antibiotic agents; Z88.5 Allergy status to narcotic agent; Z88.8 Allergy status to other drugs, medicaments and biological substances; Z98.49 Cataract extraction status, unspecified eye; Z90.49 Acquired absence of other specified parts of digestive tract; Z90.710 Acquired absence of both cervix and uterus; Z98.890 Other specified postprocedural states; Z82.49 Family history of ischemic heart disease and other diseases of the circulatory system
CPT/HCPCS: 36415; 71020; 71275; 80048; 80053; 81001; 82150; 82962; 83605; 83690; 83880; 84484; 85025; 85379; 85610; 87040; 87086; 93005; 93306; 96361; 96365; 96372; 96375; 96376; 99285; A9270; G0378; J1644; J1815; J1940; J7030; J7050; J7060; Q9967; 96374; 99284

== ENCOUNTER 2017-02-06 05:15 | Observation (INO) | payer MEDICARE, BC ==
--- NOTE | 2017-02-06 06:25 | EDM.PDOC ---
ED HPI GENERAL MEDICAL PROBLEM - General Chief Complaint: Respiratory Problem Stated Complaint: SHORTNESS OF BREATH Time Seen by Provider: 02/06/17 07:10 - History of Present Illness INITIAL COMMENTS - FREE TEXT/NARRATIVE: HISTORY AND PHYSICAL: History of present illness: Patient 71-year-old female presents with a concern of shortness of breath she states her breathing was difficult prior to arrival and somewhat raspy she was saturating in the 80s and sent to us from [facility] show no reported fever chills chest pain or other complaints she saturating in the low 90s with supplemental oxygen at 2 L per nasal cannula Review of systems: As per history of present illness and below otherwise all systems reviewed and negative. Past medical history: As per history of present illness and as reviewed below otherwise noncontributory. Surgical history: As per history of present illness and as reviewed below otherwise noncontributory. Social history: No reported history of drug or alcohol abuse. Family history: As per history of present illness and as reviewed below otherwise noncontributory. Physical exam: HEENT: Atraumatic, normocephalic, pupils reactive, negative for conjunctival pallor or scleral icterus, mucous membranes moist, throat clear, neck supple, nontender, trachea midline. Lungs: Coarse bilaterally breath sounds equal bilaterally, chest nontender. Heart: S1S2, regular, negative for clicks, rubs, or JVD. Abdomen: Soft, nondistended, nontender. Negative for masses or hepatosplenomegaly. Negative for costovertebral tenderness. Pelvis: Stable nontender. Genitourinary: Deferred. Rectal: Deferred. Extremities: Atraumatic, negative for cords or calf pain. Neurovascular unremarkable. Neuro: Awake, alert, oriented. Cranial nerves II through XII unremarkable. Cerebellum unremarkable. Motor and sensory unremarkable throughout. Exam nonfocal. Diagnostics: CBC CMP BNP troponin ABG EKG chest x-ray Therapeutics: IV O2 monitor Impression: 1 dyspnea #2 hypoxemia Definitive disposition and diagnosis as appropriate pending reevaluation and review of above. no pain verbalized Pain Score (Numeric/FACES): 0 - Related Data Allergies Allergy/AdvReac Type Severity Reaction Status Date / Time carvedilol Allergy Swelling Verified 02/06/17 06:11 cephalexin Allergy Stomach Verified 02/06/17 06:11 Upset codeine Allergy Stomach Verified 02/06/17 06:11 Upset erythromycin base Allergy Itching Verified 02/06/17 06:11 levofloxacin Allergy Other Verified 02/06/17 06:11 meperidine [From Demerol] Allergy Stomach Verified 02/06/17 06:11 Upset Penicillins Allergy Swelling Verified 02/06/17 06:11 [id number]-[id number] Reductase Allergy Other Verified 02/06/17 06:11 Inhibitor Home Meds: Home Meds Levothyroxine 112 mcg PO DAILY 05/26/14 [History] Acetaminophen [Arthritis Pain Relief] 650 mg PO Q4HR PRN 01/30/17 [History] Bisacodyl 10 mg RECTAL DAILY PRN 01/30/17 [History] Clopidogrel Bisulfate [Plavix] 75 mg PO DAILY 01/30/17 [History] Dextran 70/Hypromellose [Artificial Tears] 1 drop EYERT ASDIRECTED PRN 01/30/17 [History] Insulin Aspart [NovoLOG] 5 unit SUBCUT TIDAC 01/30/17 [History] Magnesium Hydroxide [Milk of Magnesia] 30 ml PO DAILY PRN 01/30/17 [History] Multivitamin [Multivitamins] 1 tab PO DAILY 01/30/17 [History] Nitroglycerin [Nitro-Dur 0.2 MG/Hr] 1 patch TRDERM DAILY 01/30/17 [History] Triamcinolone Acetonide [Triamcinolone Acetonide 0.1% Crm] 1 applic TOP BID [History] Aspirin 162 mg PO DAILY 01/31/17 [History] Furosemide [Lasix] 40 mg PO DAILY #30 tablet 02/02/17 [Rx] Insulin Detemir [Levemir] 30 unit SUBCUT BID@0800,2100 pen 02/02/17 [Rx] Past Medical History HEENT History: Reports: Cataract Other HEENT History: Diabetic Retinopathy Cardiovascular History: Reports: Afib, CAD, Heart Failure, High Cholesterol, Hypertension, Prior Cardiac Arrest, Stents, Other (See Below) Other Cardiovascular History: occlusion & stenosis of unspecified carotid artery. peripheral vascular disease Respiratory History: Reports: Other (See Below) Other Respiratory History: Orthopnea Gastrointestinal History: Reports: Other (See Below) Other Gastrointestinal History: Hyperkalemia Genitourinary History: Reports: UTI, Recurrent, Other (See Below) Other Genitourinary History: Chronic Kidney Disease FOOD CRITIC History: Reports: Other OB/BYN History: C section, hysterectomy Musculoskeletal History: Reports: None Other Musculoskeletal History: right foot non weight bearing Neurological History: Reports: TIA, Other (See Below) Other Neuro History: Syncope Psychiatric History: Reports: None Endocrine/Metabolic History: Reports: Diabetes, Type II, Hypothyroidism Hematologic History: Reports: Anemia, Anticoagulation Therapy Immunologic History: Reports: None Oncologic (Cancer) History: Reports: None Dermatologic History: Reports: None - Infectious Disease History Infectious Disease History: Reports: None - Past Surgical History Head Surgeries/Procedures: Reports: None HEENT Surgical History: Reports: Cataract Surgery Cardiovascular Surgical History: Reports: Other (See Below) Other Cardiovascular Surgeries/Procedures: Angioplasty GI Surgical History: Reports: Cholecystectomy Female Surgical History: Reports: Section, Hysterectomy Musculoskeletal Surgical History: Reports: Other (See Below) Other Musculoskeletal Surgeries/Procedures:: weakness Social & Family History - Family History Family Medical History: Noncontributory HEENT: Reports: Cataract Cardiac: Reports: Hypertension Respiratory: Reports: None GI: Reports: Irritable Bowel Syndrome : Reports: None OBGYN: Reports: None Musculoskeletal: Reports: Arthritis Neurological: Reports: None Psychiatric: Reports: None Endocrine/Metabolic: Reports: Diabetes, Type I Hematologic: Reports: None Oncologic: Reports: Other (See Below) Other Oncologic Family History: stomach cancer - Tobacco Use Smoking Status *Q: Never Smoker Used Tobacco, but Quit: No Second Hand Smoke Exposure: Yes - Caffeine Use Caffeine Use: Reports: Tea Caffeine Use Comment: 1 cup a day - Alcohol Use Days Per Week of Alcohol Use: 0 - Recreational Drug Use Recreational Drug Use: No ED ROS GENERAL - Review of Systems Review Of Systems: ROS reveals no pertinent complaints other than HPI. ED EXAM, GENERAL - Physical Exam Exam: See Below (See dictation) Course - Vital Signs Last Recorded V/S: Last Vital Signs Temp 36.1 C 02/06/17 05:20 Pulse 78 02/06/17 06:47 Resp 18 02/06/17 06:47 BP 167/74 H 02/06/17 06:47 Pulse Ox 97 02/06/17 06:47 - Orders/Labs/Meds Orders: Active Orders 24 hr Category Date Time Status EKG 12 Lead [EKG Documentation Completion] [RC] STAT Care 02/06/17 05:29 Active Chest 1V Frontal [CR] Stat Exams 02/06/17 05:31 Taken Labs: Laboratory Tests 02/06/17 02/06/17 02/06/17 Range/Units 05:44 05:44 05:44 WBC 6.38 (4.0-11.0) K/uL RBC 3.73 L (4.30-5.90) M/uL Hgb 11.2 L (12.0-16.0) g/dL Hct 32.8 L (36.0-46.0) % MCV 87.9 (80.0-98.0) fL MCH 30.0 (27.0-32.0) pg MCHC 34.1 (31.0-37.0) g/dL RDW Std Deviation 42.8 (28.0-62.0) fl RDW Coeff of Irvin 13 (11.0-15.0) % Plt Count 268 (150-400) K/uL MPV 9.20 (7.40-12.00) fL Neut % (Auto) 59.5 (48.0-80.0) % Lymph % (Auto) 26.3 (16.0-40.0) % [place] % (Auto) 8.0 (0.0-15.0) % Eos % (Auto) 6.0 (0.0-7.0) % Baso % (Auto) 0.2 (0.0-1.5) % Neut # (Auto) 3.8 (1.4-5.7) K/uL Lymph # (Auto) 1.7 (0.6-2.4) K/uL [place] # (Auto) 0.5 (0.0-0.8) K/uL Eos # (Auto) 0.4 (0.0-0.7) K/uL Baso # (Auto) 0.0 (0.0-0.1) K/uL Nucleated RBC % 0.0 /100WBC Nucleated RBCs # 0 K/uL ABG pH (7.35-7.45) ABG pCO2 (35-45) mmHG ABG pO2 (75-100) mmHG ABG HCO3 (22-26) mEq/L ABG Total CO2 ABG Base Excess (-2.0-2.0) Sodium 138 (136-146) mmol/L Potassium 4.3 (3.5-5.1) mmol/L Chloride 106 (98-110) mmol/L Carbon Dioxide 23 (21-31) mmol/L BUN 52 H (6.0-23.0) mg/dL Creatinine 1.5 (0.6-1.5) mg/dL Est Cr Clr Drug Dosing 28.04 mL/min Estimated GFR (MDRD) 34.1 ml/min Glucose 219 H (60-110) mg/dL Calcium 9.2 (8.8-10.8) mg/dL Total Bilirubin 0.4 (0.1-1.5) mg/dL AST 24 (5-40) IU/L ALT 37 (8-54) IU/L Alkaline Phosphatase 145 (40-150) CK-MB (CK-2) 2.6 (0-6.6) ng/ml Troponin I 0.10 (0.0-0.29) NG/ML B-Natriuretic Peptide 750 H (<100) PG/ML Total Protein 7.2 (6.0-8.0) g/dL Albumin 3.5 (3.4-4.8) g/dL Globulin 3.7 H (2.0-3.5) g/dL Albumin/Globulin Ratio 1.0 L (1.3-2.8) 02/06/17 Range/Units 06:13 WBC (4.0-11.0) K/uL RBC (4.30-5.90) M/uL Hgb (12.0-16.0) g/dL Hct (36.0-46.0) % MCV (80.0-98.0) fL MCH (27.0-32.0) pg MCHC (31.0-37.0) g/dL RDW Std Deviation (28.0-62.0) fl RDW Coeff of Irvin (11.0-15.0) % Plt Count (150-400) K/uL MPV (7.40-12.00) fL Neut % (Auto) (48.0-80.0) % Lymph % (Auto) (16.0-40.0) % [place] % (Auto) (0.0-15.0) % Eos % (Auto) (0.0-7.0) % Baso % (Auto) (0.0-1.5) % Neut # (Auto) (1.4-5.7) K/uL Lymph # (Auto) (0.6-2.4) K/uL [place] # (Auto) (0.0-0.8) K/uL Eos # (Auto) (0.0-0.7) K/uL Baso # (Auto) (0.0-0.1) K/uL Nucleated RBC % /100WBC Nucleated RBCs # K/uL ABG pH 7.434 (7.35-7.45) ABG pCO2 37 (35-45) mmHG ABG pO2 60 L (75-100) mmHG ABG HCO3 24 (22-26) mEq/L ABG Total CO2 22.5 ABG Base Excess 0.3 (-2.0-2.0) Sodium (136-146) mmol/L Potassium (3.5-5.1) mmol/L Chloride (98-110) mmol/L Carbon Dioxide (21-31) mmol/L BUN (6.0-23.0) mg/dL Creatinine (0.6-1.5) mg/dL Est Cr Clr Drug Dosing mL/min Estimated GFR (MDRD) ml/min Glucose (60-110) mg/dL Calcium (8.8-10.8) mg/dL Total Bilirubin (0.1-1.5) mg/dL AST (5-40) IU/L ALT (8-54) IU/L Alkaline Phosphatase (40-150) CK-MB (CK-2) (0-6.6) ng/ml Troponin I (0.0-0.29) NG/ML B-Natriuretic Peptide (<100) PG/ML Total Protein (6.0-8.0) g/dL Albumin (3.4-4.8) g/dL Globulin (2.0-3.5) g/dL Albumin/Globulin Ratio (1.3-2.8) Meds: Medications Discontinued Medications Generic Name Dose Route Start Last Admin Trade Name Freq PRN Reason Stop Dose Admin Furosemide 40 mg 02/06/17 07:08 Lasix IVPUSH 02/06/17 07:09 NOW ONE Departure - Departure Time of Disposition: 07:10 Disposition: Refer to Observation Condition: Good Clinical Impression: Hypoxemia CHF exacerbation Qualifiers: Congestive heart failure type: systolic Qualified Code(s): I50.23 - Acute on chronic systolic (congestive) heart failure - Discharge Information Referrals: PCP,None [Primary Care Provider] - Forms: ED Department Discharge - My Orders Last 24 Hours: My Active Orders 02/06/17 05:29 EKG 12 Lead [EKG Documentation Completion] [RC] STAT 02/06/17 05:31 Chest 1V Frontal [CR] Stat - Assessment/Plan Last 24 Hours: My Active Orders 02/06/17 05:29 EKG 12 Lead [EKG Documentation Completion] [RC] STAT 02/06/17 05:31 Chest 1V Frontal [CR] Stat
[2017-02-06] MEDS ORDERED: Furosemide 40 MG/4 ML VIAL IVPUSH ONE (07:08)
[2017-02-06] MEDS ORDERED: FLU Vacc QS 2017-18 (6mos UP)/PF 60 MCG/0.5 ML Syringe IM ONE (11:15)
--- NOTE | 2017-02-06 13:32 | PCM.HP ---
H&P History of Present Illness - General Date of Service: 02/06/17 Source of Information: Patient, Family, Old Records, Provider - History of Present Illness Initial Comments - Free Text/Narative: She was seen this am in the ED. She resides at [place] [facility] and was sent home from the hospital earlier this week after a hospitalization for congestive heart failure. She had improved but was sent to the ED as she felt more short of breath and also was noted to be hypoxic. Previously she was on bumex and this was changed to lasix recently. she feels better already since she was given lasix i n the ED. no chest pain no fever no prominent cough. Right Feet Pain Score (Numeric/FACES): 2 no pain verbalized Pain Score (Numeric/FACES): 0 - Related Data Allergies/Adverse Reactions: Allergies Allergy/AdvReac Type Severity Reaction Status Date / Time carvedilol Allergy Swelling Verified 02/06/17 06:11 cephalexin Allergy Stomach Verified 02/06/17 06:11 Upset codeine Allergy Stomach Verified 02/06/17 06:11 Upset erythromycin base Allergy Itching Verified 02/06/17 06:11 levofloxacin Allergy Other Verified 02/06/17 06:11 meperidine [From Demerol] Allergy Stomach Verified 02/06/17 06:11 Upset Penicillins Allergy Swelling Verified 02/06/17 06:11 [id number]-[id number] Reductase Allergy Other Verified 02/06/17 06:11 Inhibitor Home Medications: Home Meds Levothyroxine 112 mcg PO DAILY 05/26/14 [History] Acetaminophen [Arthritis Pain Relief] 650 mg PO Q4HR PRN 01/30/17 [History] Bisacodyl 10 mg RECTAL DAILY PRN 01/30/17 [History] Clopidogrel Bisulfate [Plavix] 75 mg PO DAILY 01/30/17 [History] Dextran 70/Hypromellose [Artificial Tears] 1 drop EYERT ASDIRECTED PRN 01/30/17 [History] Insulin Aspart [NovoLOG] 5 unit SUBCUT TIDAC 01/30/17 [History] Magnesium Hydroxide [Milk of Magnesia] 30 ml PO DAILY PRN 01/30/17 [History] Multivitamin [Multivitamins] 1 tab PO DAILY 01/30/17 [History] Nitroglycerin [Nitro-Dur 0.2 MG/Hr] 1 patch TRDERM DAILY 01/30/17 [History] Triamcinolone Acetonide [Triamcinolone Acetonide 0.1% Crm] 1 applic TOP BID [History] Aspirin 162 mg PO DAILY 01/31/17 [History] Furosemide [Lasix] 40 mg PO DAILY #30 tablet 02/02/17 [Rx] Insulin Detemir [Levemir] 30 unit SUBCUT BID@0800,2100 pen 02/02/17 [Rx] Past Medical History HEENT History: Reports: Cataract Other HEENT History: Diabetic Retinopathy Cardiovascular History: Reports: Afib, CAD, Heart Failure, High Cholesterol, Hypertension, Prior Cardiac Arrest, Stents, Other (See Below) Other Cardiovascular History: occlusion & stenosis of unspecified carotid artery. peripheral vascular disease Respiratory History: Reports: Other (See Below) Other Respiratory History: Orthopnea Gastrointestinal History: Reports: Other (See Below) Other Gastrointestinal History: Hyperkalemia Genitourinary History: Reports: UTI, Recurrent, Other (See Below) Other Genitourinary History: Chronic Kidney Disease [employer] History: Reports: Other OB/BYN History: C section, hysterectomy Musculoskeletal History: Reports: None Other Musculoskeletal History: right foot non weight bearing Neurological History: Reports: TIA, Other (See Below) Other Neuro History: Syncope Psychiatric History: Reports: None Endocrine/Metabolic History: Reports: Diabetes, Type II, Hypothyroidism Hematologic History: Reports: Anemia, Anticoagulation Therapy Immunologic History: Reports: None Oncologic (Cancer) History: Reports: None Dermatologic History: Reports: None - Infectious Disease History Infectious Disease History: Reports: Chicken Pox, MRSA, Mumps, Rubella - Past Surgical History Head Surgeries/Procedures: Reports: None HEENT Surgical History: Reports: Cataract Surgery Cardiovascular Surgical History: Reports: Other (See Below) Other Cardiovascular Surgeries/Procedures: Angioplasty GI Surgical History: Reports: Cholecystectomy Female Surgical History: Reports: Section, Hysterectomy Musculoskeletal Surgical History: Reports: Other (See Below) Other Musculoskeletal Surgeries/Procedures:: weakness Social & Family History - Family History Family Medical History: Noncontributory HEENT: Reports: Cataract Cardiac: Reports: Hypertension Respiratory: Reports: None GI: Reports: Irritable Bowel Syndrome : Reports: None OBGYN: Reports: None Musculoskeletal: Reports: Arthritis Neurological: Reports: None Psychiatric: Reports: None Endocrine/Metabolic: Reports: Diabetes, Type I Hematologic: Reports: None Oncologic: Reports: Other (See Below) Other Oncologic Family History: stomach cancer - Tobacco Use Smoking Status *Q: Never Smoker Used Tobacco, but Quit: No Second Hand Smoke Exposure: Yes - Caffeine Use Caffeine Use: Reports: Coffee Caffeine Use Comment: 1 cup a day - Alcohol Use Days Per Week of Alcohol Use: 0 - Recreational Drug Use Recreational Drug Use: No H&P Review of Systems - Review of Systems: Review Of Systems: See Below General: Denies: Fever, Chills Pulmonary: Reports: Shortness of Breath. Denies: Cough, Sputum, Hemoptysis Cardiovascular: Denies: Chest Pain Gastrointestinal: Denies: Abdominal Pain, Black Stool, Bloody Stool, Hematochezia Review of Systems Comment:: she reports that she has some mild short term memory problems Exam - Exam Exam: See Below - Vital Signs Vital Signs: Last Vital Signs Temp 97.0 F 02/06/17 12:00 Pulse 82 02/06/17 12:00 Resp 22 H 02/06/17 12:00 BP 175/80 H 02/06/17 12:00 Pulse Ox 96 02/06/17 12:00 Weight: 78.4 kg - Exam General: Alert, Oriented, Cooperative HEENT: EOMI Neck: Supple, Trachea Midline. No: JVD Lungs: Clear to Auscultation, Normal Respiratory Effort Cardiovascular: Regular Rate, Regular Rhythm. No: Systolic Murmur, Diastolic Murmur, Rubs GI/Abdominal Exam: Soft, Non-Tender (Female) Exam: Deferred, Vaginal Tears Extremities: Other (right ankle deformity with inversion of the right ankle. She has wraps of the great toe and heel for diabetic ulcers. These appear to have healed now. I do not see remarkable LE edema. ) Neuro Extensive - Mental Status: Normal Mood/Affect Neuro Extensive - Motor, Sensory, Reflexes: Facial palsy (L) (subtle left facial droop.) - Patient Data Lab Results Last 24 hrs: Laboratory Results - last 24 hr 02/06/17 Range/Units 12:02 POC Glucose 256 H (60-110) mg/dL Result Diagrams: 02/06/17 05:44 02/06/17 05:44 *Q Meaningful Use (ADM) - VTE *Q VTE Criteria *Q: - Stroke *Q Stroke Criteria *Q: - AMI *Q AMI Criteria *Q: - Problem List (1) CHF exacerbation SNOMED Code(s): 31228855 ICD Code: I50.9 - HEART FAILURE, UNSPECIFIED Status: Acute Current Visit : Yes Qualifiers: Congestive heart failure type: systolic Qualified Code(s): I50.23 - Acute on chronic systolic (congestive) heart failure (2) Hypoxemia SNOMED Code(s): 385683039 ICD Code: R09.02 - HYPOXEMIA Status: Acute Current Visit: Yes (3) Chronic renal insufficiency SNOMED Code(s): 734011754 ICD Code: N18.9 - CHRONIC KIDNEY DISEASE, UNSPECIFIED Status: Acute Current Visit: No Problem List Initiated/Reviewed/Updated: Yes Orders Last 24hrs: Active Orders 24 hr Category Date Time Status Telemetry Monitoring [Cardiac Monitoring] [RC] . Care 02/06/17 10:21 Active DIRECTED ADA Diabetic [[place] [employer]abetic Association Diet] [DIET Diet 02/06/17 Lunch Active ] Assessment/Plan Comment:: I reviewed her prior echo which showed LVEF of 40%. see orders. she confirms code level II status. She states that she only wants one brief "round of cpr". Miguel Sullivan MD
[2017-02-06] MEDS ORDERED: Magnesium Hydroxide 400 MG/5 ML Susp 30 ML Cup PO PRN (13:34)
[2017-02-06] MEDS ORDERED: Bisacodyl 10 MG Supp RECTAL PRN (13:34)
[2017-02-06] MEDS ORDERED: Carboxymethylcellulose Sodium 0.5% Ophth Soln 0.4 ML UD Box of 30 EYERT PRN (13:34)
[2017-02-06] MEDS ORDERED: Acetaminophen 325 MG Tab PO PRN (13:37)
[2017-02-06] MEDS: Clopidogrel 75 MG Tab PO SCH (14:16)
[2017-02-06] MEDS: Furosemide 40 MG Tab PO SCH (14:16)
[2017-02-06] MEDS: Aspirin 81 MG Tab.Chew PO SCH (14:16)
[2017-02-06] MEDS: Nitroglycerin 0.2 MG/HR Transdermal Patch TRDERM SCH (14:17)
[2017-02-06] MEDS: Insulin Aspart 100 Units/ML 3 ML Pen SUBCUT SCH (16:55)
[2017-02-06] MEDS: Insulin Detemir 100 Units/ML 3 ML Pen SUBCUT SCH (21:20)
[2017-02-07] MEDS: Insulin Aspart 100 Units/ML 3 ML Pen SUBCUT SCH ×5 (06:39→20:01)
[2017-02-07] MEDS: Levothyroxine 112 MCG Tab PO SCH (08:05)
[2017-02-07] MEDS: Multivitamins with Iron/Calcium/Folic Acid/Minerals Tab PO SCH (08:05)
[2017-02-07] MEDS: Aspirin 81 MG Tab.Chew PO SCH (08:05)
[2017-02-07] MEDS: Clopidogrel 75 MG Tab PO SCH (08:05)
[2017-02-07] MEDS: Nitroglycerin 0.2 MG/HR Transdermal Patch TRDERM SCH (08:06)
[2017-02-07] MEDS: Furosemide 40 MG Tab PO SCH (08:06)
[2017-02-07] MEDS: Insulin Detemir 100 Units/ML 3 ML Pen SUBCUT SCH ×2 (08:18→20:02)
--- NOTE | 2017-02-07 13:18 | PCM.PN ---
- General Info Date of Service: 02/07/17 Subjective Update: she is feeling better. She thinks that she might feel a little congestion in her lungs but she states that she is not sure as it may just be that she is anxious and "gun shy". - Patient Data Vitals - Most Recent: Last Vital Signs Temp 97.7 F 02/07/17 08:00 Pulse 78 02/07/17 08:00 Resp 18 02/07/17 08:00 BP 148/66 H 02/07/17 08:00 Pulse Ox 95 02/07/17 08:00 Weight - Most Recent: 78.4 kg I&O - Last 24 Hours: Intake & Output 02/06/17 02/07/17 02/07/17 22:59 06:59 14:59 Intake Total 740 650 Output Total 1000 1750 Balance -260 -1100 Lab Results Last 24 Hours: Laboratory Results - last 24 hr 02/06/17 02/06/17 02/07/17 Range/Units 16:40 21:03 03:53 WBC (4.0-11.0) K/uL RBC (4.30-5.90) M/uL Hgb (12.0-16.0) g/dL Hct (36.0-46.0) % MCV (80.0-98.0) fL MCH (27.0-32.0) pg MCHC (31.0-37.0) g/dL RDW Std Deviation (28.0-62.0) fl RDW Coeff of Irvin (11.0-15.0) % Plt Count (150-400) K/uL MPV (7.40-12.00) fL Neut % (Auto) (48.0-80.0) % Lymph % (Auto) (16.0-40.0) % [place] % (Auto) (0.0-15.0) % Eos % (Auto) (0.0-7.0) % Baso % (Auto) (0.0-1.5) % Neut # (Auto) (1.4-5.7) K/uL Lymph # (Auto) (0.6-2.4) K/uL [place] # (Auto) (0.0-0.8) K/uL Eos # (Auto) (0.0-0.7) K/uL Baso # (Auto) (0.0-0.1) K/uL Nucleated RBC % /100WBC Nucleated RBCs # K/uL Sodium (136-146) mmol/L Potassium (3.5-5.1) mmol/L Chloride (98-110) mmol/L Carbon Dioxide (21-31) mmol/L BUN (6.0-23.0) mg/dL Creatinine (0.6-1.5) mg/dL Est Cr Clr Drug Dosing mL/min Estimated GFR (MDRD) ml/min Glucose (60-110) mg/dL POC Glucose 314 H 336 H 369 H (60-110) mg/dL Calcium (8.8-10.8) mg/dL Magnesium (1.5-2.3) mEq/L B-Natriuretic Peptide (<100) PG/ML 02/07/17 02/07/17 02/07/17 Range/Units 04:50 04:50 04:50 WBC 5.10 (4.0-11.0) K/uL RBC 3.35 L (4.30-5.90) M/uL Hgb 10.0 L (12.0-16.0) g/dL Hct 29.6 L (36.0-46.0) % MCV 88.4 (80.0-98.0) fL MCH 29.9 (27.0-32.0) pg MCHC 33.8 (31.0-37.0) g/dL RDW Std Deviation 43.6 (28.0-62.0) fl RDW Coeff of Irvin 13 (11.0-15.0) % Plt Count 257 (150-400) K/uL MPV 9.20 (7.40-12.00) fL Neut % (Auto) 57.7 (48.0-80.0) % Lymph % (Auto) 27.6 (16.0-40.0) % [place] % (Auto) 8.8 (0.0-15.0) % Eos % (Auto) 5.7 (0.0-7.0) % Baso % (Auto) 0.2 (0.0-1.5) % Neut # (Auto) 2.9 (1.4-5.7) K/uL Lymph # (Auto) 1.4 (0.6-2.4) K/uL [place] # (Auto) 0.5 (0.0-0.8) K/uL Eos # (Auto) 0.3 (0.0-0.7) K/uL Baso # (Auto) 0.0 (0.0-0.1) K/uL Nucleated RBC % 0.0 /100WBC Nucleated RBCs # 0 K/uL Sodium 136 (136-146) mmol/L Potassium 4.5 (3.5-5.1) mmol/L Chloride 103 (98-110) mmol/L Carbon Dioxide 23 (21-31) mmol/L BUN 59 H (6.0-23.0) mg/dL Creatinine 1.5 (0.6-1.5) mg/dL Est Cr Clr Drug Dosing 28.04 mL/min Estimated GFR (MDRD) 34.1 ml/min Glucose 428 H (60-110) mg/dL POC Glucose (60-110) mg/dL Calcium 8.7 L (8.8-10.8) mg/dL Magnesium 1.7 (1.5-2.3) mEq/L B-Natriuretic Peptide 689 H (<100) PG/ML 02/07/17 02/07/17 02/07/17 Range/Units 06:25 08:15 11:44 WBC (4.0-11.0) K/uL RBC (4.30-5.90) M/uL Hgb (12.0-16.0) g/dL Hct (36.0-46.0) % MCV (80.0-98.0) fL MCH (27.0-32.0) pg MCHC (31.0-37.0) g/dL RDW Std Deviation (28.0-62.0) fl RDW Coeff of Irvin (11.0-15.0) % Plt Count (150-400) K/uL MPV (7.40-12.00) fL Neut % (Auto) (48.0-80.0) % Lymph % (Auto) (16.0-40.0) % [place] % (Auto) (0.0-15.0) % Eos % (Auto) (0.0-7.0) % Baso % (Auto) (0.0-1.5) % Neut # (Auto) (1.4-5.7) K/uL Lymph # (Auto) (0.6-2.4) K/uL [place] # (Auto) (0.0-0.8) K/uL Eos # (Auto) (0.0-0.7) K/uL Baso # (Auto) (0.0-0.1) K/uL Nucleated RBC % /100WBC Nucleated RBCs # K/uL Sodium (136-146) mmol/L Potassium (3.5-5.1) mmol/L Chloride (98-110) mmol/L Carbon Dioxide (21-31) mmol/L BUN (6.0-23.0) mg/dL Creatinine (0.6-1.5) mg/dL Est Cr Clr Drug Dosing mL/min Estimated GFR (MDRD) ml/min Glucose (60-110) mg/dL POC Glucose 351 H 329 H 357 H (60-110) mg/dL Calcium (8.8-10.8) mg/dL Magnesium (1.5-2.3) mEq/L B-Natriuretic Peptide (<100) PG/ML Med Orders - Current: Current Medications Acetaminophen (Tylenol) 650 mg PO Q4H PRN PRN Reason: Pain (Mild 1-3)/fever Artificial Tears (Refresh Plus 0.5%) 1 each EYERT ASDIRECTED PRN PRN Reason: Dry Eyes Aspirin (Aspirin) 162 mg PO DAILY [facility] Last Admin: 02/07/17 08:05 Dose: 162 mg Bisacodyl (Dulcolax) 10 mg RECTAL DAILY PRN PRN Reason: Constipation Clopidogrel Bisulfate (Plavix) 75 mg PO DAILY [facility] Last Admin: 02/07/17 08:05 Dose: 75 mg Furosemide (Lasix) 40 mg PO DAILY [facility] Last Admin: 02/07/17 08:06 Dose: 40 mg Insulin Aspart (Novolog) 0 unit SUBCUT ACBED [facility] PRN Reason: Protocol Last Admin: 02/07/17 12:16 Dose: 10 units Insulin Detemir (Levemir) 40 unit SUBCUT BID@0800,2100 [facility] Levothyroxine Sodium (Levothyroxine) 112 mcg PO DAILY [facility] Last Admin: 02/07/17 08:05 Dose: 112 mcg Magnesium Hydroxide (Milk Of Magnesia) 30 ml PO DAILY PRN PRN Reason: Constipation Multivitamins/Minerals (Thera M Plus) 1 tab PO DAILY [facility] Last Admin: 02/07/17 08:05 Dose: 1 tab Nitroglycerin (Nitro-Dur 0.2 Mg/Hr) 0.2 mg TRDERM DAILY [facility] Last Admin: 02/07/17 08:06 Dose: 0.2 mg Discontinued Medications Furosemide (Lasix) 40 mg IVPUSH NOW ONE Stop: 02/06/17 07:09 Last Admin: 02/06/17 07:14 Dose: 40 mg Influenza Virus Vaccine (Pharmacy To Dose - Influenza Vaccine) 1 each IM ONETIME ONE Stop: 02/06/17 11:05 Influenza Virus Vaccine (Flulaval Quad [id number]) 60 mcg IM .ONCE ONE Stop: 02/06/17 11:16 Insulin Aspart (Novolog) 5 unit SUBCUT TIDAC [facility] Last Admin: 02/07/17 06:39 Dose: 5 unit Insulin Detemir (Levemir) 30 unit SUBCUT BID@0800,2100 [facility] Last Admin: 02/07/17 08:18 Dose: 30 units - Exam General: Alert, Cooperative Neck: Supple, Trachea Midline Lungs: Clear to Auscultation, Normal Respiratory Effort. No: Rales, Rhonchi Cardiovascular: Regular Rate, Regular Rhythm GI/Abdominal Exam: Soft, Non-Tender Psy/Mental Status: Normal Affect. No: Depressed - Problem List & Annotations (1) CHF exacerbation SNOMED Code(s): 55722113 Code(s): I50.9 - HEART FAILURE, UNSPECIFIED Status: Acute Current Visit: Yes Qualifiers: Congestive heart failure type: systolic Qualified Code(s): I50.23 - Acute on chronic systolic (congestive) heart failure (2) Hypoxemia SNOMED Code(s): 570972292 Code(s): R09.02 - HYPOXEMIA Status: Acute Current Visit: Yes (3) Chronic renal insufficiency SNOMED Code(s): 314508598 Code(s): N18.9 - CHRONIC KIDNEY DISEASE, UNSPECIFIED Status: Acute Current Visit: No - Problem List Review Problem List Initiated/Reviewed/Updated: Yes - My Orders Last 24 Hours: My Active Orders 02/06/17 13:34 Bisacodyl [Dulcolax] 10 mg RECTAL DAILY PRN Carboxymethylcellulose Sodium [Refresh Plus 0.5%] 1 each EYERT ASDIRECTED PRN Magnesium Hydroxide [Milk of Magnesia] 30 ml PO DAILY PRN 02/06/17 13:37 VTE/DVT Education [RC] PER UNIT ROUTINE Vital Signs [RC] Q4H Acetaminophen [Tylenol] 650 mg PO Q4H PRN Resuscitation Status Routine 02/06/17 13:45 Clopidogrel [Plavix] 75 mg PO DAILY Furosemide [Lasix] 40 mg PO DAILY 02/06/17 14:00 Aspirin 162 mg PO DAILY Nitroglycerin [Nitro-Dur 0.2 MG/Hr] 0.2 mg TRDERM DAILY 02/06/17 15:18 Blood Glucose Check, Bedside [RC] QIDACANDBED 02/07/17 09:00 Levothyroxine 112 mcg PO DAILY Multivitamins w-Iron/Ca/FA/Min [Thera M Plus] 1 tab PO DAILY 02/07/17 11:26 Insulin Detemir [Levemir] 40 unit SUBCUT BID@0800,2100 02/07/17 11:30 Insulin Aspart [NovoLOG] See Protocol SUBCUT ACBED - Plan Plan:: I reviewed her prior echo which showed LVEF of 40%. see orders. she confirms code level II status. She states that she only wants one brief "round of cpr". Miguel Sullivan MD 02/07/2017 I think that her symptoms are most c/w CHF exacerbation. I reviewed her CXR which I think is c/w clinical diagnosis of CHF. will give an extra dose of lasix will check radiology dept reading of cxr. close monitoring possible discharge about 48 hours. Miguel Sullivan MD
[2017-02-07] MEDS ORDERED: Furosemide 40 MG/4 ML VIAL IVPUSH ONE (13:20)
--- NOTE | 2017-02-07 13:20 | PCM.SN ---
- Free Text/Narrative Note: elevated blood sugars noted. I increased dos e of levemir and added sliding scale novolog will increase am lasix to 60 mg daily q am.
[2017-02-07] MEDS ORDERED: Furosemide 40 MG Tab PO SCH (13:21)
[2017-02-08] MEDS: Insulin Aspart 100 Units/ML 3 ML Pen SUBCUT SCH ×2 (07:12→12:04)
[2017-02-08] MEDS: Clopidogrel 75 MG Tab PO SCH (08:16)
[2017-02-08] MEDS: Multivitamins with Iron/Calcium/Folic Acid/Minerals Tab PO SCH (08:17)
[2017-02-08] MEDS: Levothyroxine 112 MCG Tab PO SCH (08:17)
[2017-02-08] MEDS: Aspirin 81 MG Tab.Chew PO SCH (08:17)
[2017-02-08] MEDS: Nitroglycerin 0.2 MG/HR Transdermal Patch TRDERM SCH (08:19)
[2017-02-08] MEDS: Insulin Detemir 100 Units/ML 3 ML Pen SUBCUT SCH (08:26)
[2017-02-08] MEDS ORDERED: Ondansetron 4 MG/2 ML SDV IVPUSH ONE (11:31)
--- NOTE | 2017-02-08 12:53 | CR ---
EXAM DATE: 02/06/17 PATIENT'S AGE: 71 Patient: YADIRA TORRES Facility: [place], [place] Site . Site : 1945 Study: XRay Chest [id number]/28/2017 6:01:01 AM Ordering Physician: Doctor Monaco Final Report: INDICATION: Shortness of breath TECHNIQUE: Chest radiograph 1 view COMPARISON: 01/30/2017 FINDINGS: Mediastinum: The mediastinum is normal in appearance. The heart silhouette is normal in size and morphology. Lungs: Diffuse interstitial infiltrates are present bilaterally which may be due to interstitial edema. Mild bibasilar atelectasis noted. No sign of pleural effusion seen. No pneumothorax is identified. Bones: Moderate levoscoliosis of the thoracolumbar spine is noted with associated facet arthritis and degenerative disc disease. IMPRESSIONS: 1. Diffuse interstitial infiltrates are present bilaterally which may be due to interstitial edema. Dictated by Joe Osorio MD @ 02/06/2017 6:09:49 AM Dictated by: Joe Osorio MD @ 02/06/2017 06:09:56 (Electronic Signature) Report Signed by Proxy. [facility]ITAL[facility]
[2017-02-08 13:37] VITALS: BP 159/69
--- NOTE | 2017-02-08 14:31 | PCM.DCSUM1 ---
<Barry Mccauley - Last Filed: 02/08/17 14:37> Discharge Summary - Hospital Course Free Text/Narrative:: Admission date February 06, 2017 Discharge date February 08, 2017 Admission diagnosis: 1. Congestive heart failure exacerbation 2. Hypoxemia 3. Chronic renal insufficiency 4. Type 2 diabetes mellitus 5. Hypothyroidism Discharge diagnoses: 1. CHF exacerbation-improved with shortness of breath resolved 2. Hypoxemia resolved 3. Chronic renal insufficiency 4. Type 2 diabetes mellitus 5. Hypothyroidism Hospital course: This is a 71-year-old female with a past history of congestive heart failure who presented to the emergency department from [facility] on February 06 with a chief complaint of shortness of breath. She was then admitted for observation and management and treated for an exacerbation. After being diuresis with Lasix, patient was also then weaned off of the supplemental oxygen which she tolerated well. At the time of discharge, the patient denied having any shortness of breath, chest pain fevers or chills. She had no complaints. She said she felt much better than at the time of admission. A.m. labs indicated no significant abnormalities aside from hyperglycemia in a patient with known history of diabetes along with an elevated BUN. She is discharged back to [facility] on 60 mg of Lasix daily. She is started on 2.5 mg of lisinopril daily. Patient also is scheduled for a repeat BMP in 1 week to reassess kidney function. Discharge instructions also indicate daily weights and to report by nursing have to primary physician if the patient gains more than 1 pound a day or more than 3 pounds in a week. Disposition: [facility] Follow up with primary care provider within one week Return precautions: Worsening shortness of breath, hypoxia, signs of fluid retention such as pedal edema, chest pain, palpitations. - Discharge Data Discharge Date: 02/08/17 Discharge Disposition: DC/Tfer to [facility] 62 Condition: Stable - Patient Instructions Diet: Heart Healthy Diet, Low Sodium Fluid Restriction: 1500 mL Activity: As Tolerated Driving: May Drive Today Showering/Bathing: May Shower Notify Provider of: Fever, Swelling and Redness Other/Special Instructions: chest pain, shortness of breath - Discharge Plan Prescriptions/Med Rec: Furosemide [Lasix] 60 mg PO DAILY 7 Days #14 tablet Lisinopril 2.5 mg PO DAILY 7 Days #7 tablet Home Medications: Home Meds Levothyroxine 112 mcg PO DAILY 05/26/14 [History] Acetaminophen [Arthritis Pain Relief] 650 mg PO Q4HR PRN 01/30/17 [History] Bisacodyl 10 mg RECTAL DAILY PRN 01/30/17 [History] Clopidogrel Bisulfate [Plavix] 75 mg PO DAILY 01/30/17 [History] Dextran 70/Hypromellose [Artificial Tears] 1 drop EYERT ASDIRECTED PRN 01/30/17 [History] Insulin Aspart [NovoLOG] 5 unit SUBCUT TIDAC 01/30/17 [History] Magnesium Hydroxide [Milk of Magnesia] 30 ml PO DAILY PRN 01/30/17 [History] Multivitamin [Multivitamins] 1 tab PO DAILY 01/30/17 [History] Nitroglycerin [Nitro-Dur 0.2 MG/Hr] 1 patch TRDERM DAILY 01/30/17 [History] Triamcinolone Acetonide [Triamcinolone Acetonide 0.1% Crm] 1 applic TOP BID [History] Aspirin 162 mg PO DAILY 01/31/17 [History] Insulin Detemir [Levemir] 30 unit SUBCUT BID@0800,2100 pen 02/02/17 [Rx] Furosemide [Lasix] 60 mg PO DAILY 7 Days #14 tablet 02/08/17 [Rx] Lisinopril 2.5 mg PO DAILY 7 Days #7 tablet 02/08/17 [Rx] Patient Handouts: Furosemide tablets, Lisinopril tablets, Heart Failure, Easy- to-Read Referrals: Williams Cesar MD [Physician] - Jasiel Thorpe MD [Ordering Only Provider] - 03/01/17 1:30 pm - Discharge Summary/Plan Comment DC Time >30 min.: No Discharge Summary/Plan Comment: Admission date February 06, 2017 Discharge date February 08, 2017 Admission diagnosis: 1. Congestive heart failure exacerbation 2. Hypoxemia 3. Chronic renal insufficiency 4. Type 2 diabetes mellitus 5. Hypothyroidism Discharge diagnoses: 1. CHF exacerbation-improved with shortness of breath resolved 2. Hypoxemia resolved 3. Chronic renal insufficiency 4. Type 2 diabetes mellitus 5. Hypothyroidism Hospital course: This is a 71-year-old female with a past history of congestive heart failure who presented to the emergency department from [facility] on February 06 with a chief complaint of shortness of breath. She was then admitted for observation and management and treated for an exacerbation. After being diuresis with Lasix, patient was also then weaned off of the supplemental oxygen which she tolerated well. A.m. labs indicated no significant abnormalities aside from hyperglycemia in a patient with known history of diabetes along with an elevated BUN. She is discharged back to [facility] on 60 mg of Lasix daily. She is started on 2.5 mg of lisinopril daily. Patient also is scheduled for a repeat BMP in 1 week to reassess kidney function. Discharge instructions also indicate daily weights and to report by nursing have to primary physician if the patient gains more than 1 pound a day or more than 3 pounds in a week. Disposition: [facility] home Follow up with primary care provider within one week. Follow up with cardiology. Return precautions: Worsening shortness of breath, hypoxia, signs of fluid retention such as pedal edema, chest pain, palpitations. - Patient Data Vitals - Most Recent: Last Vital Signs Temp 36.4 C 02/08/17 12:00 Pulse 81 02/08/17 12:00 Resp 18 02/08/17 12:00 BP 159/69 H 02/08/17 12:00 Pulse Ox 95 02/08/17 12:00 Weight - Most Recent: 78.4 kg I&O - Last 24 hours: Intake & Output 02/07/17 02/08/17 02/08/17 22:59 06:59 14:59 Intake Total 940 1050 580 Output Total 1970 1250 1600 Balance -1030 -200 -1020 Lab Results - Last 24 hrs: Laboratory Results - last 24 hr 02/07/17 02/07/17 02/08/17 Range/Units 16:43 19:49 03:30 WBC (4.0-11.0) K/uL RBC (4.30-5.90) M/uL Hgb (12.0-16.0) g/dL Hct (36.0-46.0) % MCV (80.0-98.0) fL MCH (27.0-32.0) pg MCHC (31.0-37.0) g/dL RDW Std Deviation (28.0-62.0) fl RDW Coeff of Irvin (11.0-15.0) % Plt Count (150-400) K/uL MPV (7.40-12.00) fL Neut % (Auto) (48.0-80.0) % Lymph % (Auto) (16.0-40.0) % Liberty % (Auto) (0.0-15.0) % Eos % (Auto) (0.0-7.0) % Baso % (Auto) (0.0-1.5) % Neut # (Auto) (1.4-5.7) K/uL Lymph # (Auto) (0.6-2.4) K/uL Liberty # (Auto) (0.0-0.8) K/uL Eos # (Auto) (0.0-0.7) K/uL Baso # (Auto) (0.0-0.1) K/uL Nucleated RBC % /100WBC Nucleated RBCs # K/uL Sodium (136-146) mmol/L Potassium (3.5-5.1) mmol/L Chloride (98-110) mmol/L Carbon Dioxide (21-31) mmol/L BUN (6.0-23.0) mg/dL Creatinine (0.6-1.5) mg/dL Est Cr Clr Drug Dosing mL/min Estimated GFR (MDRD) ml/min Glucose (60-110) mg/dL POC Glucose 249 H 318 H 137 H (60-110) mg/dL Calcium (8.8-10.8) mg/dL Magnesium (1.5-2.3) mEq/L 02/08/17 02/08/17 02/08/17 Range/Units 05:48 05:48 05:48 WBC 6.53 (4.0-11.0) K/uL RBC 3.40 L (4.30-5.90) M/uL Hgb 10.1 L (12.0-16.0) g/dL Hct 29.8 L (36.0-46.0) % MCV 87.6 (80.0-98.0) fL MCH 29.7 (27.0-32.0) pg MCHC 33.9 (31.0-37.0) g/dL RDW Std Deviation 42.9 (28.0-62.0) fl RDW Coeff of Irvin 14 (11.0-15.0) % Plt Count 261 (150-400) K/uL MPV 9.00 (7.40-12.00) fL Neut % (Auto) 54.5 (48.0-80.0) % Lymph % (Auto) 28.8 (16.0-40.0) % Liberty % (Auto) 10.4 (0.0-15.0) % Eos % (Auto) 6.1 (0.0-7.0) % Baso % (Auto) 0.2 (0.0-1.5) % Neut # (Auto) 3.6 (1.4-5.7) K/uL Lymph # (Auto) 1.9 (0.6-2.4) K/uL Liberty # (Auto) 0.7 (0.0-0.8) K/uL Eos # (Auto) 0.4 (0.0-0.7) K/uL Baso # (Auto) 0.0 (0.0-0.1) K/uL Nucleated RBC % 0.0 /100WBC Nucleated RBCs # 0 K/uL Sodium 138 (136-146) mmol/L Potassium 4.3 (3.5-5.1) mmol/L Chloride 104 (98-110) mmol/L Carbon Dioxide 26 (21-31) mmol/L BUN 62 H (6.0-23.0) mg/dL Creatinine 1.5 (0.6-1.5) mg/dL Est Cr Clr Drug Dosing 28.04 mL/min Estimated GFR (MDRD) 34.1 ml/min Glucose 192 H (60-110) mg/dL POC Glucose 175 H (60-110) mg/dL Calcium 8.7 L (8.8-10.8) mg/dL Magnesium 1.7 (1.5-2.3) mEq/L 02/08/17 02/08/17 Range/Units 08:33 11:33 WBC (4.0-11.0) K/uL RBC (4.30-5.90) M/uL Hgb (12.0-16.0) g/dL Hct (36.0-46.0) % MCV (80.0-98.0) fL MCH (27.0-32.0) pg MCHC (31.0-37.0) g/dL RDW Std Deviation (28.0-62.0) fl RDW Coeff of Irvin (11.0-15.0) % Plt Count (150-400) K/uL MPV (7.40-12.00) fL Neut % (Auto) (48.0-80.0) % Lymph % (Auto) (16.0-40.0) % Liberty % (Auto) (0.0-15.0) % Eos % (Auto) (0.0-7.0) % Baso % (Auto) (0.0-1.5) % Neut # (Auto) (1.4-5.7) K/uL Lymph # (Auto) (0.6-2.4) K/uL Liberty # (Auto) (0.0-0.8) K/uL Eos # (Auto) (0.0-0.7) K/uL Baso # (Auto) (0.0-0.1) K/uL Nucleated RBC % /100WBC Nucleated RBCs # K/uL Sodium (136-146) mmol/L Potassium (3.5-5.1) mmol/L Chloride (98-110) mmol/L Carbon Dioxide (21-31) mmol/L BUN (6.0-23.0) mg/dL Creatinine (0.6-1.5) mg/dL Est Cr Clr Drug Dosing mL/min Estimated GFR (MDRD) ml/min Glucose (60-110) mg/dL POC Glucose 141 H 185 H (60-110) mg/dL Calcium (8.8-10.8) mg/dL Magnesium (1.5-2.3) mEq/L Med Orders - Current: Current Medications Acetaminophen (Tylenol) 650 mg PO Q4H PRN PRN Reason: Pain (Mild 1-3)/fever Artificial Tears (Refresh Plus 0.5%) 1 each EYERT ASDIRECTED PRN PRN Reason: Dry Eyes Aspirin (Aspirin) 162 mg PO DAILY [facility] Last Admin: 02/08/17 08:17 Dose: 162 mg Bisacodyl (Dulcolax) 10 mg RECTAL DAILY PRN PRN Reason: Constipation Clopidogrel Bisulfate (Plavix) 75 mg PO DAILY [facility] Last Admin: 02/08/17 08:16 Dose: 75 mg Furosemide (Lasix) 60 mg PO DAILY [facility] Last Admin: 02/08/17 08:17 Dose: 60 mg Insulin Aspart (Novolog) 0 unit SUBCUT ACBED [facility] PRN Reason: Protocol Last Admin: 02/08/17 12:04 Dose: 2 units Insulin Detemir (Levemir) 40 unit SUBCUT BID@0800,2100 [facility] Last Admin: 02/08/17 08:26 Dose: 40 units Levothyroxine Sodium (Levothyroxine) 112 mcg PO DAILY [facility] Last Admin: 02/08/17 08:17 Dose: 112 mcg Magnesium Hydroxide (Milk Of Magnesia) 30 ml PO DAILY PRN PRN Reason: Constipation Multivitamins/Minerals (Thera M Plus) 1 tab PO DAILY [facility] Last Admin: 02/08/17 08:17 Dose: 1 tab Nitroglycerin (Nitro-Dur 0.2 Mg/Hr) 0.2 mg TRDERM DAILY [facility] Last Admin: 02/08/17 08:19 Dose: 0.2 mg Discontinued Medications Furosemide (Lasix) 40 mg IVPUSH NOW ONE Stop: 02/06/17 07:09 Last Admin: 02/06/17 07:14 Dose: 40 mg Furosemide (Lasix) 40 mg PO DAILY [facility] Last Admin: 02/07/17 08:06 Dose: 40 mg Furosemide (Lasix) 40 mg IVPUSH NOW ONE Stop: 02/07/17 13:21 Last Admin: 02/07/17 13:46 Dose: 40 mg Influenza Virus Vaccine (Pharmacy To Dose - Influenza Vaccine) 1 each IM ONETIME ONE Stop: 02/06/17 11:05 Influenza Virus Vaccine (Flulaval Quad [id number]) 60 mcg IM .ONCE ONE Stop: 02/06/17 11:16 Insulin Aspart (Novolog) 5 unit SUBCUT TIDAC [facility] Last Admin: 02/07/17 13:44 Dose: Not Given Insulin Detemir (Levemir) 30 unit SUBCUT BID@0800,2100 [facility] Last Admin: 02/07/17 08:18 Dose: 30 units Ondansetron HCl (Zofran) 4 mg IVPUSH ONETIME ONE Stop: 02/08/17 11:32 Last Admin: 02/08/17 11:58 Dose: 4 mg *Q Meaningful Use (DIS) - VTE *Q VTE Criteria *Q: - Stroke *Q Stroke Criteria *Q: - AMI *Q AMI Criteria *Q: <Mario Gonzales J - Last Filed: 02/08/17 19:28> - Patient Data Vitals - Most Recent: Last Vital Signs Temp 36.4 C 02/08/17 12:00 Pulse 81 02/08/17 12:00 Resp 18 02/08/17 12:00 BP 159/69 H 02/08/17 12:00 Pulse Ox 95 02/08/17 12:00 I&O - Last 24 hours: Intake & Output 02/08/17 02/08/17 02/08/17 06:59 14:59 22:59 Intake Total 1050 580 Output Total 1250 1600 Balance -200 -1020 Lab Results - Last 24 hrs: Laboratory Results - last 24 hr 02/07/17 02/08/17 02/08/17 Range/Units 19:49 03:30 05:48 WBC 6.53 (4.0-11.0) K/uL RBC 3.40 L (4.30-5.90) M/uL Hgb 10.1 L (12.0-16.0) g/dL Hct 29.8 L (36.0-46.0) % MCV 87.6 (80.0-98.0) fL MCH 29.7 (27.0-32.0) pg MCHC 33.9 (31.0-37.0) g/dL RDW Std Deviation 42.9 (28.0-62.0) fl RDW Coeff of Irvin 14 (11.0-15.0) % Plt Count 261 (150-400) K/uL MPV 9.00 (7.40-12.00) fL Neut % (Auto) 54.5 (48.0-80.0) % Lymph % (Auto) 28.8 (16.0-40.0) % Liberty % (Auto) 10.4 (0.0-15.0) % Eos % (Auto) 6.1 (0.0-7.0) % Baso % (Auto) 0.2 (0.0-1.5) % Neut # (Auto) 3.6 (1.4-5.7) K/uL Lymph # (Auto) 1.9 (0.6-2.4) K/uL Liberty # (Auto) 0.7 (0.0-0.8) K/uL Eos # (Auto) 0.4 (0.0-0.7) K/uL Baso # (Auto) 0.0 (0.0-0.1) K/uL Nucleated RBC % 0.0 /100WBC Nucleated RBCs # 0 K/uL Sodium (136-146) mmol/L Potassium (3.5-5.1) mmol/L Chloride (98-110) mmol/L Carbon Dioxide (21-31) mmol/L BUN (6.0-23.0) mg/dL Creatinine (0.6-1.5) mg/dL Est Cr Clr Drug Dosing mL/min Estimated GFR (MDRD) ml/min Glucose (60-110) mg/dL POC Glucose 318 H 137 H (60-110) mg/dL Calcium (8.8-10.8) mg/dL Magnesium (1.5-2.3) mEq/L 02/08/17 02/08/17 02/08/17 Range/Units 05:48 05:48 08:33 WBC (4.0-11.0) K/uL RBC (4.30-5.90) M/uL Hgb (12.0-16.0) g/dL Hct (36.0-46.0) % MCV (80.0-98.0) fL MCH (27.0-32.0) pg MCHC (31.0-37.0) g/dL RDW Std Deviation (28.0-62.0) fl RDW Coeff of Irvin (11.0-15.0) % Plt Count (150-400) K/uL MPV (7.40-12.00) fL Neut % (Auto) (48.0-80.0) % Lymph % (Auto) (16.0-40.0) % Liberty % (Auto) (0.0-15.0) % Eos % (Auto) (0.0-7.0) % Baso % (Auto) (0.0-1.5) % Neut # (Auto) (1.4-5.7) K/uL Lymph # (Auto) (0.6-2.4) K/uL Liberty # (Auto) (0.0-0.8) K/uL Eos # (Auto) (0.0-0.7) K/uL Baso # (Auto) (0.0-0.1) K/uL Nucleated RBC % /100WBC Nucleated RBCs # K/uL Sodium 138 (136-146) mmol/L Potassium 4.3 (3.5-5.1) mmol/L Chloride 104 (98-110) mmol/L Carbon Dioxide 26 (21-31) mmol/L BUN 62 H (6.0-23.0) mg/dL Creatinine 1.5 (0.6-1.5) mg/dL Est Cr Clr Drug Dosing 28.04 mL/min Estimated GFR (MDRD) 34.1 ml/min Glucose 192 H (60-110) mg/dL POC Glucose 175 H 141 H (60-110) mg/dL Calcium 8.7 L (8.8-10.8) mg/dL Magnesium 1.7 (1.5-2.3) mEq/L 02/08/ Range/Units 11:33 WBC (4.0-11.0) K/uL RBC (4.30-5.90) M/uL Hgb (12.0-16.0) g/dL Hct (36.0-46.0) % MCV (80.0-98.0) fL MCH (27.0-32.0) pg MCHC (31.0-37.0) g/dL RDW Std Deviation (28.0-62.0) fl RDW Coeff of Irvin (11.0-15.0) % Plt Count (150-400) K/uL MPV (7.40-12.00) fL Neut % (Auto) (48.0-80.0) % Lymph % (Auto) (16.0-40.0) % Liberty % (Auto) (0.0-15.0) % Eos % (Auto) (0.0-7.0) % Baso % (Auto) (0.0-1.5) % Neut # (Auto) (1.4-5.7) K/uL Lymph # (Auto) (0.6-2.4) K/uL Liberty # (Auto) (0.0-0.8) K/uL Eos # (Auto) (0.0-0.7) K/uL Baso # (Auto) (0.0-0.1) K/uL Nucleated RBC % /100WBC Nucleated RBCs # K/uL Sodium (136-146) mmol/L Potassium (3.5-5.1) mmol/L Chloride (98-110) mmol/L Carbon Dioxide (21-31) mmol/L BUN (6.0-23.0) mg/dL Creatinine (0.6-1.5) mg/dL Est Cr Clr Drug Dosing mL/min Estimated GFR (MDRD) ml/min Glucose (60-110) mg/dL POC Glucose 185 H (60-110) mg/dL Calcium (8.8-10.8) mg/dL Magnesium (1.5-2.3) mEq/L Med Orders - Current: Current Medications Discontinued Medications Acetaminophen (Tylenol) 650 mg PO Q4H PRN PRN Reason: Pain (Mild 1-3)/fever Artificial Tears (Refresh Plus 0.5%) 1 each EYERT ASDIRECTED PRN PRN Reason: Dry Eyes Aspirin (Aspirin) 162 mg PO DAILY [facility] Last Admin: 02/08/17 08:17 Dose: 162 mg Bisacodyl (Dulcolax) 10 mg RECTAL DAILY PRN PRN Reason: Constipation Clopidogrel Bisulfate (Plavix) 75 mg PO DAILY [facility] Last Admin: 02/08/17 08:16 Dose: 75 mg Furosemide (Lasix) 40 mg IVPUSH NOW ONE Stop: 02/06/17 07:09 Last Admin: 02/06/17 07:14 Dose: 40 mg Furosemide (Lasix) 40 mg PO DAILY [facility] Last Admin: 02/07/17 08:06 Dose: 40 mg Furosemide (Lasix) 40 mg IVPUSH NOW ONE Stop: 02/07/17 13:21 Last Admin: 02/07/17 13:46 Dose: 40 mg Furosemide (Lasix) 60 mg PO DAILY [facility] Last Admin: 02/08/17 08:17 Dose: 60 mg Influenza Virus Vaccine (Pharmacy To Dose - Influenza Vaccine) 1 each IM ONETIME ONE Stop: 02/06/17 11:05 Influenza Virus Vaccine (Flulaval Quad [id number]) 60 mcg IM .ONCE ONE Stop: 02/06/17 11:16 Insulin Aspart (Novolog) 5 unit SUBCUT TIDAC [facility] Last Admin: 02/07/17 13:44 Dose: Not Given Insulin Aspart (Novolog) 0 unit SUBCUT ACBED [facility] PRN Reason: Protocol Last Admin: 02/08/17 12:04 Dose: 2 units Insulin Detemir (Levemir) 30 unit SUBCUT BID@0800,2100 [facility] Last Admin: 02/07/17 08:18 Dose: 30 units Insulin Detemir (Levemir) 40 unit SUBCUT BID@0800,2100 [facility] Last Admin: 02/08/17 08:26 Dose: 40 units Levothyroxine Sodium (Levothyroxine) 112 mcg PO DAILY [facility] Last Admin: 02/08/17 08:17 Dose: 112 mcg Magnesium Hydroxide (Milk Of Magnesia) 30 ml PO DAILY PRN PRN Reason: Constipation Multivitamins/Minerals (Thera M Plus) 1 tab PO DAILY [facility] Last Admin: 02/08/17 08:17 Dose: 1 tab Nitroglycerin (Nitro-Dur 0.2 Mg/Hr) 0.2 mg TRDERM DAILY [facility] Last Admin: 02/08/17 08:19 Dose: 0.2 mg Ondansetron HCl (Zofran) 4 mg IVPUSH ONETIME ONE Stop: 02/08/17 11:32 Last Admin: 02/08/17 11:58 Dose: 4 mg *Q Meaningful Use (DIS) - VTE *Q VTE Criteria *Q: - Stroke *Q Stroke Criteria *Q: - AMI *Q AMI Criteria *Q: - Free Text/Narrative Note: I have examined the patient. I have discussed findings and treatment plan with resident. I agree with the assessment and plan outlined in the following resident's note.
== END 2017-02-08 14:05 ==
LOC: MW.ED 05:15 → MW.MS 08:41
PROVIDERS: ADMIT Family Medicine; ATTEND Family Medicine
DX: I13.0 Hypertensive heart and chronic kidney disease with heart failure and stage 1 through stage 4 chronic kidney disease, or unspecified chronic kidney disease (principal); I50.23 Acute on chronic systolic (congestive) heart failure; N18.9 Chronic kidney disease, unspecified; E11.22 Type 2 diabetes mellitus with diabetic chronic kidney disease; R09.02 Hypoxemia; E03.9 Hypothyroidism, unspecified; I48.91 Unspecified atrial fibrillation; I25.10 Atherosclerotic heart disease of native coronary artery without angina pectoris; I73.9 Peripheral vascular disease, unspecified; Z86.73 Personal history of transient ischemic attack (TIA), and cerebral infarction without residual deficits; Z87.440 Personal history of urinary (tract) infections; Z86.14 Personal history of Methicillin resistant Staphylococcus aureus infection; Z82.49 Family history of ischemic heart disease and other diseases of the circulatory system; Z79.4 Long term (current) use of insulin; Z79.02 Long term (current) use of antithrombotics/antiplatelets; Z79.82 Long term (current) use of aspirin; Z79.899 Other long term (current) drug therapy; Z88.0 Allergy status to penicillin; Z88.1 Allergy status to other antibiotic agents; Z88.5 Allergy status to narcotic agent; Z88.8 Allergy status to other drugs, medicaments and biological substances; Z98.49 Cataract extraction status, unspecified eye; Z90.710 Acquired absence of both cervix and uterus; Z98.890 Other specified postprocedural states
CPT/HCPCS: 36415; 36600; 71010; 80048; 80053; 82553; 82803; 82962; 83735; 83880; 84484; 85025; 93005; 96374; 96375; 96376; 99285; A9270; G0378; J1815; J1940; J2405; 99283